=== PATIENT | female | born 1995 | race Caucasian/White ===

== ENCOUNTER 2019-03-29 08:40 | Outpatient (CLI) | payer MEDICAID, SELFPAY ==
[2019-03-29 08:55] VITALS: PULSE 81; RESP 18; TEMP 36.8
[2019-03-29 09:00] VITALS: BP 147/85; PULSE 101; RESP 18; BMI 33.3
[2019-03-29 09:10] VITALS: BP 134/74
[2019-03-29 09:15] VITALS: BP 134/73; PULSE 81; RESP 18
[2019-03-29 13:57] VITALS: BP 156/90; PULSE 112
== END 2019-03-29 09:15 | disposition home or self-care (01) ==
PROVIDERS: Family Provider Family Medicine; Visit Provider Family Medicine
DX: O26.893 Other specified pregnancy related conditions, third trimester (principal); Z3A.00 Weeks of gestation of pregnancy not specified
CPT/HCPCS: 59025; 83986; 99211

== ENCOUNTER 2019-04-03 14:31 | Outpatient (CLI) | payer MEDICAID, SELFPAY ==
--- NOTE | 2019-04-03 14:45 | US_ITS ---
WS: [id number] OB ultrasound for biophysical profile, 04/03/2019 Clinical Data: HIGH RISK /ELEVATED BLOOD PRESSURE Comparison: OB ultrasound, 11/30/2018. Findings: There is a single intrauterine in the vertex presentation. The heart rate is 133 beat s per minute. The cervix was not well seen. The placenta is anterior and grade 2. There is a normal amount of amniotic fluid measuring 10.8 cm.. The biophysical profile is 8 of 8 with normal scores for breathing, movement, posture and tone and amniotic fluid volume. Measurements of growth and development: BPD 9.41 cm HC 33.82 cm AC 34.57 cm FL 7.38 cm The estimated weight was 3464 g or 7 lbs. 10 oz. The estimated gestational age is 38 weeks 2 days and the NAVNEET is 04/15/2019. US/US OB F/U w BPP wo NST Impression: 1. Single intrauterine in vertex presentation. 2. Biophysical profile 8 of 8. 3. heart rate 133 beats per minute.
== END 2019-04-03 14:32 | disposition home or self-care (01) ==
LOC: RAD 14:32
PROVIDERS: Family Provider Family Medicine; Visit Provider Family Medicine
DX: O09.93 Supervision of high risk pregnancy, unspecified, third trimester (principal)
CPT/HCPCS: 76816; 76819

== ENCOUNTER 2019-04-03 16:00 | Outpatient (CLI) | payer MEDICAID, SELFPAY | END 2019-04-03 16:25 | disposition home or self-care (01) | PROVIDERS: Family Provider Family Medicine; Visit Provider Family Medicine | DX: O16.9 Unspecified maternal hypertension, unspecified trimester (principal); Z3A.00 Weeks of gestation of pregnancy not specified ==

== ENCOUNTER 2019-04-03 16:16 | Outpatient (CLI) | payer MEDICAID, SELFPAY ==
[2019-04-03 16:16] VITALS: RESP 18; TEMP 36.7
[2019-04-03 17:13] VITALS: BMI 33.2
[2019-04-03 18:01] VITALS: RESP 18; TEMP 36.7
== END 2019-04-03 16:17 | disposition home or self-care (01) ==
LOC: OPOB 16:17
PROVIDERS: Family Provider Family Medicine; Visit Provider Family Medicine
DX: O13.9 Gestational [pregnancy-induced] hypertension without significant proteinuria, unspecified trimester (principal); Z3A.00 Weeks of gestation of pregnancy not specified
CPT/HCPCS: 59025; 99211

== ENCOUNTER 2019-04-06 10:25 | Outpatient (CLI) | payer MEDICAID, SELFPAY ==
[2019-04-06 10:51] VITALS: BMI 34.5
[2019-04-06 11:07] VITALS: BP 114/65; PULSE 82
[2019-04-06 11:21] VITALS: BP 117/71; PULSE 67
[2019-04-06 11:28] VITALS: BP 117/71; RESP 18; TEMP 36.7
== END 2019-04-06 11:25 | disposition home or self-care (01) ==
PROVIDERS: Family Provider Family Medicine; PCP Family Medicine; Visit Provider Family Medicine
DX: O13.4 Gestational [pregnancy-induced] hypertension without significant proteinuria, complicating childbirth (principal); Z3A.00 Weeks of gestation of pregnancy not specified
CPT/HCPCS: 59025

== ENCOUNTER 2019-04-10 09:09 | Inpatient (IN) | payer MEDICAID, SELFPAY ==
[2019-04-10] VITALS (68 sets, daily range): BP systolic 0–152; BP diastolic 0–87; PULSE 56–80; RESP 16–20; TEMP 36.6–36.8; O2SAT 96–100; BMI 34.3
[2019-04-10 10:12] LABS: Basophils % 0.5 %; Eosinophils # 0.1 10^3/uL (0.0-0.8); Eosinophils % 0.9 %; Hemoglobin 11.4 g/dL (11.5-15.3); Lymphocytes # 1.7 10^3/uL (0.8-4.8); Lymphocytes % 18.7 %; Mean Corpuscular HGB Conc 32.6 g/dL (30.0-36.0); Mean Corpuscular Hemoglobin 29.2 pg (28.0-34.0); Mean Corpuscular Volume 89.7 fL (81-99); Mean Platelet Volume 13.4 fL (7.4-10.4); Monocytes # 0.5 10^3/uL (0.2-0.9); Monocytes % 5.2 %; Neutrophils # 6.6 10^3/uL (1.8-7.7); Neutrophils % 74.5 %; Nucleated Red Blood Cells % 0 %; Platelet Count 150 10^3/cmm (130-400); Red Cell Distribution Width 13.7 % (12.1-15.1); White Blood Count 8.9 10^3/uL (4.0-10.0)
[2019-04-10 10:28] LABS: Alanine Aminotransferase 9 U/L (0-33); Albumin Level 3.4 g/dL (3.5-5.2); Alkaline Phosphatase 212 IU/L (35-105); Anion Gap 17.6 (5-19); Aspartate Amino Transferase 19 U/L (0-32); Blood Urea Nitrogen 5 mg/dL (6-20); Carbon Dioxide 20 mmol/L (22-29); Chloride 101 mmol/L (98-107); Globulin 3.7 g/dL (1.3-4.6); Glucose 109 mg/dL (74-109); Potassium 3.6 mmol/L (3.5-5.1); Sodium 135 mmol/L (136-145); Total Bilirubin 0.2 mg/dL (0.15-1.2); Total Protein 7.1 g/dL (6.6-8.7); Uric Acid 4.7 mg/dL (2.4-5.7)
--- NOTE | 2019-04-10 10:51 | PC.NURSE ---
anesthesia in room, pt positioned for epidural placement
--- NOTE | 2019-04-10 11:05 | ANES.PREANES ---
Pre-Anesthetic Assessment Pre-Anesthetic Assessment: Height/Weight: Height 1.63 m Weight 90.718 kg Temp Pulse Resp BP Pulse Ox 98.2 F 63 20 H 139/75 100 04/10/19 10:18 04/10/19 11:01 04/10/19 10:18 04/10/19 11:01 04/10/19 10:59 Preop Diagnosis: IUP Proposed Procedure: Labor Lumbar Epidural Was Beta Miya taken within 24 hours: N/A Social: Social History: No alcohol and No tobacco Exam: Pre-Anes Outpt Exam: alert, oriented x 3, clear to auscultation bilaterally and regular rate & rhythm Airway: Submandibular: WNL Cervical ROM: WNL MP: 2 Dentition: Full History/ROS: No significant history except as noted and No significant complaints Pulmonary: Pulmonary: None reported CV/HEM: CV/HEM: HTN (PIH- on PO labetalol) : : None reported Hepatic: Hepatic: None reported GI: GI: GERD Metabolic: Metabolic: None reported Musc/skel: Musc/skel: None reported Neuropsych: Neuropsych: None reported Anesthetic Plan: ASA status: II Anesthesia: Regional (specify below) Other: Epidural Meds/Allergies Current Medications: Current Medications Generic Name Dose Route Start Last Admin Trade Name Freq PRN Reason Stop Dose Admin Lactated Ringer's 2,000 mls @ 999 m ls/hr 04/10/19 09:48 04/10/19 10:10 Lactated Ringers IV 04/10/19 11:48 999 mls/hr .Q2H1M ONE Administration PFSH Anesthesia Female Reproductive History: Date of last menstrual period: 07/10/18 : 3 Data Anesthesia CBC & Chem 7: 04/10/19 09:40 04/10/19 09:40 Other Labs: Laboratory Results - last 48 hr 04/10/19 04/10/19 09:40 09:40 WBC 8.9 RBC 3.90 L Hgb 11.4 L Hct 35.0 L MCV 89.7 MCH 29.2 MCHC 32.6 RDW 13.7 Plt Count 150 MPV 13.4 H Neut % (Auto) 74.5 Lymph % (Auto) 18.7 Lipscomb % (Auto) 5.2 Eos % (Auto) 0.9 Baso % (Auto) 0.5 Neut # (Auto) 6.6 Lymph # (Auto) 1.7 Lipscomb # (Auto) 0.5 Eos # (Auto) 0.1 Baso # (Auto) 0.0 Nucleated RBC % (auto) 0 Nucleated RBCs # 0.0 Sodium 135 L Potassium 3.6 Chloride 101 Carbon Dioxide 20 L Anion Gap 17.6 BUN 5 L Creatinine 0.6 GFR Calculation 125.0 Glucose 109 Uric Acid 4.7 Calcium 9.0 Total Bilirubin 0.2 AST 19 ALT 9 Alkaline Phosphatase 212 H Total Protein 7.1 Albumin 3.4 L Globulin 3.7 Cardiac Studies: No Data to Display Anesthesia Procedures Date of Procedure: 04/10/19 Epidural: Time Out Performed: Yes Consents Signed: Procedure Consent Consent: from patient, risks and benefits reviewed and patient agrees to proceed Lumbar Level: L3-L4 Epidural position: sitting Epidural procedure: sterile prep of area, 1% lidocaine to numb the area (5), 18 g needle, negative for paresthesia passed, neg for paresthesia, test dose given, 1.5% xylocaine 1:200k epi (5), 0.2% Ropivacaine bolus ml (8), placed PCEA (5cc q10min x 3), no systemic response, sterile dressing applied, L.U.D. no apparent complications and 0.2% Ropiavacaine @ mls/hr (11.5) Additional Comments: Called to OB for epidural placement, pt evaluated and assessed for placement and explained procedure. Labs reviewed. Pt agrees to proceed. placed to 5cm in space and tolerated well. Bolused over 7 min and VSS throughout per nursing chart. Last BP 128/77. Pain much improved.
[2019-04-10 11:27] LABS: Add Urine Microscopic? YES; Bilirubin Urine Neg (NEGATIVE); Blood Urine Neg (Negative); Glucose Urine UA Norm (Normal); Ketones Urine Negative (Negative); Leukocyte Esterase Urine Negative (Negative); Nitrate Urine Negative (Negative); Protein Urine Neg (Negative); Urine Appearance Clear (CLEAR); Urine Color Yellow (Yellow); Urobilinogen Urine Norm (Negative)
[2019-04-10 11:33] LABS: Urine Creatinine 230 mg/dL (28-217); Urine Protein Random 19 mg/dL
[2019-04-10 11:35] LABS: UPRO/UCREAT Ratio 0.08 mg/mg CR
[2019-04-10 12:02] LABS: Add Urine Culture? No; Bacteria Urine TRACE
--- NOTE | 2019-04-10 12:29 | PM.OBGYHP ---
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 She presents at 39-1/7 weeks gestation with complaint of contractions onset early this morning and increasing in frequency and intensity. She is a patient of Dr. Luna's. Her course has been complicated by gestational hypertension diagnosed at 36 weeks gestation. For the past 2 weeks she has been taking labetalol 50 mg twice daily and has had work-up for preeclampsia which was negative. She has been asymptomatic with the exception of a headache which she had over the weekend which was associated with elevated blood pressure but did respond to acetaminophen. She is currently asymptomatic with the exception of the contractions. She has no other complications during this . There is been no bleeding and no leakage of fluid. Since she has a history of gestational hypertension with her first , she is been on the recommended aspirin since 12 weeks gestation. Present Details : 3 Para: 1 Date of Last Menstrual Period: 07/10/18 Calculated Date of Delivery: 04/16/19 Gestational Age Based on Last Menstrual Period: 39 Labs Rubella: Immune RPR: Negative GBS: Negative Other Lab Information: Antibody screen: Negative HIV: Negative Gonorrhea/Chlamydia: Negative/negative Pap: Normal Quad screen: Declined Urine culture: Mixed [id number] gram-positive bindu 1 hour GTT: 95 Group B strep screen: Negative Review of Systems Const: Denies: fever Eyes: Denies: change in vision, blurry vision or blind spots Card: Denies: chest pain or edema Resp: Denies: shortness of breath or productive cough GI: Denies: abdominal pain, nausea or vomiting : Reports: pelvic pain (Consistent with contractions); Denies: vaginal bleeding Musc: Denies: extremity swelling Skin/Breast: Denies: rash Neuro: Denies: headache, numbness in extremities, weakness in extremities or slurred speech Psych: Denies: anxiety or depression Medications/Allergies Home Medications Medication Instructions Recorded Confirmed Last Taken Type labetalol 50 mg PO BID 04/10/19 04/10/19 04/10/19 History 0700 vit no.[id number] 1 tab PO DAILY 04/10/19 04/10/19 04/09/19 History [ Vitamin] 1900 Allergies Allergy/AdvReac Type Severity Reaction Status Date / Time No Known Allergies Allergy Verified 04/10/19 10:36 [facility] 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 Date GA/Weeks Outcome Route Wt Inf Gender Labor Lgth Comp. Anesthesia Location 03/22/14 6 spontaneous 11/20/16 39 live - full term Vaginal 3.274 kg Female Delivery Date: 03/22/14 On 04/10/19 @ 13:04 Gabriela Francisco No complications Delivery Date: 11/20/16 On 04/10/19 @ 13:06 Gabriela Francisco Gestational hypertension, hemorrhage Vitals/I&O/Wt Last Vital Signs Temp 98.2 F 04/10/19 10:18 Pulse 63 04/10/19 12:25 Resp 20 H 04/10/19 10:18 BP 139/83 04/10/19 12:25 Pulse Ox 99 04/10/19 11:49 Weight last 48 hrs Weight 90.718 kg Physical Exam Narrative: EXAM NARRATIVE: For complete physical examination please refer to her record. heart tones are category 1 with normal baseline, moderate variability, no decelerations, and there are adequate accelerations. Contractions are every 5 to 6 minutes and moderate. Const: COMMON NORMALS: no apparent distress, oriented x3, no limitations, healthy appearing, alert and well nourished GENERAL APPEARANCE: cooperative, comfortable and well developed ORIENTATION/CONSCIOUSNESS: Yes awake HENMT: COMMON NORMALS: normocephalic HEAD & SCALP: normocephalic Eye: COMMON NORMALS: PERRL and no scleral icterus GENERAL EYE: normal appearance of both eyes PUPIL: Yes PERRL Neck/C-Spine: COMMON NORMALS: no JVD Resp: COMMON NORMALS: normal respiratory effort and clear to auscultation bilaterally AUSCULTATION: clear to auscultation bilaterally Cardio: COMMON NORMALS: no JVD, regular rate, regular rhythm, no murmurs and peripheral pulses 2+ throughout RATE: regular rate RHYTHM: regular rhythm PERIPHERAL PULSES: pulses 2+ throughout : MANUAL OB EXAM: dilated 8 cm (8 to 9 cm), effaced fully, station -2 and other (Vertex) OTHER: Bag of water palpable Extremity: COMMON NORMALS: normal to inspection, no clubbing, cyanosis or edema and no pedal edema Neuro: COMMON NORMALS: oriented x3 SENSORIUM/ORIENTATION: Yes alert OTHER: No clonus or hyperactive reflexes Psych: COMMON NORMALS: mental status grossly normal, thought process normal, cooperative, affect normal and speech normal SPEECH: Yes normal speech THOUGHT PROCESS: normal thought process Skin: COMMON NORMALS: no rashes or lesions noted and no jaundice GENERAL SKIN EXAM: no rashes or lesions noted Urinary Catheter Management^: Burris: Cath Placed During This Visit: no Data : 04/10/19 09:40 04/10/19 09:40 A&P Assessment and plan (1) 39 weeks gestation of : Status: Acute Code(s): Z3A.39 - 39 weeks gestation of (2) Spontaneous onset of labor: Routine labor and delivery admit orders. Patient is desirous of an epidural, therefore preparations were made upon her arrival. Note is made that she is already received it and is comfortable. Status: Acute (3) Gestational hypertension affecting third : Preeclamptic labs were updated and were not suggestive of preeclampsia. She remains asymptomatic. Status: Acute Code(s): O13.9 - Gestational [-induced] hypertension without significant proteinuria, unspecified trimester Attestations Medical Necessity Statement*: As patient has not yet delivered and has a complication which can continue to manifest itself and even worsen , she will need continued hospitalization as an inpatient. Coding Level of Care Code Acute Client Success Specialist for Chg Fwd Exam Problem Focused Diagnoses 39 weeks gestation of Z3A.39 Spontaneous onset of labor Gestational hypertension affecting third O13.9
[2019-04-10] MEDS: oxytocin 30 UNIT/500 ML BAG 600 UNIT IV (13:54)
[2019-04-10] MEDS: lidocaine 2% INJ 20 mL INJECTION (13:56)
--- NOTE | 2019-04-10 14:06 | P.PCNOB_ITS ---
Delivery Note: Date of delivery: 04/10/19 Pre-delivery diagnoses: 39-week gross intrauterine Spontaneous onset of labor Gestational hypertension, asymptomatic, preeclamptic evaluation negative Epidural anesthesia Amniotomy productive of a moderate amount of clear fluid Post-delivery diagnoses: 39-week spontaneous vaginal delivery of a viable male Nuchal cord x1 First-degree periurethral laceration status post repair Anesthesia: epidural Delivering Physician: Dr. Francisco Estimated blood loss (mL): 150.0 Pre-Delivery Course: When patient arrived in the labor room this morning she was 6 cm dilated, 75% effaced and -2 to -3 station. She was hope every 5 to 6 minutes with increasing frequency and intensity. A preeclamptic laboratory evaluation was done and revealed no abnormalities relative to preeclampsia. She was asymptomatic. She did not have any blood pressures above 160 systolic or 110 diastolic. She opted for an epidural shortly after arrival, received it and became comfortable. At 1309 she underwent amniotomy which was productive of a moderate amount of clear fluid. At that time she had only an anterior rim of cervix remaining. She was then found to be completely dilated at 1328. Delivery: We had her labor down from 1328 until 1339 at which time we began the active portion of the second stage of her labor. After just 8 minutes and 3 contractions worth of pushes she delivered a viable male infant at 1347. Head was straight OA. There was a nuchal cord x1 which was loose and easily manually reduced on the perineum. Bulb suctioning was done upon delivery of the baby's head and of his body. Baby was placed on maternal abdomen while cord was clamped by myself without delay, cut by the father the baby and cord blood obtained. Baby remained on mother's abdomen for a while and was then taken to the warmer for routine resuscitative measures. Gentle traction was placed on the cord, and Pitocin was given in routine intravenous doses. The placenta was delivered at 1352 and appeared intact. The perineum and cervix were inspected, and a first-degree periurethral laceration was repaired with 2-0 chromic running stitch after a 1 mL lidocaine local anesthetic. Fundus was firm. Mother and baby were stable. Post-Delivery Status: Shortly after delivery patient had an increase in her bleeding.. Fundal massage revealed a firm uterus, but there was passage of some small to moderate size clots, and the uterus was then even more firm. Patient will be given 800 mcg of Cytotec rectally. A&P Assessment and plan (1) 39 weeks gestation of : Status: Acute Code(s): Z3A.39 - 39 weeks gestation of (2) Spontaneous onset of labor: Status: Acute (3) Gestational hypertension affecting third : Status: Acute Code(s): O13.9 - Gestational [-induced] hypertension without significant proteinuria, unspecified trimester (4) Normal vaginal delivery of third : Status: Acute Code(s): O80 - Encounter for full-term uncomplicated delivery (5) Rupture of membranes with clear amniotic fluid: Status: Acute (6) Periurethral laceration, delivered, current hospitalization: Status: Acute Code(s): O71.82 - Other specified trauma to perineum and vulva Coding Level of Care Code Acute Commercial Insurance Underwriter for Chg Fwd Diagnoses 39 weeks gestation of Z3A.39 Spontaneous onset of labor Gestational hypertension affecting third O13.9 Rupture of membranes with clear amniotic fluid Normal vaginal delivery of third O80 Periurethral laceration, delivered, current hospitalization O71.82
[2019-04-10] MEDS: miSOPROStol 200 mcg Tablet 800 MCG PR (14:30)
[2019-04-10] MEDS: benzocaine-menthol 78 gm Canister 1 SPRAY TOPICAL (16:15)
[2019-04-10] MEDS: docusate sodium 100 mg Capsule PO (16:15)
[2019-04-10 17:02] LABS: Basophils % 0.2 %; Eosinophils % 0.1 %; Hematocrit 33.5 % (37.0-47.0); Hemoglobin 11.1 g/dL (11.5-15.3); Lymphocytes # 1.7 10^3/uL (0.8-4.8); Lymphocytes % 12.7 %; Mean Corpuscular HGB Conc 33.1 g/dL (30.0-36.0); Mean Corpuscular Hemoglobin 30.7 pg (28.0-34.0); Mean Corpuscular Volume 92.8 fL (81-99); Mean Platelet Volume 13.2 fL (7.4-10.4); Monocytes # 0.5 10^3/uL (0.2-0.9); Monocytes % 3.4 %; Neutrophils # 11.4 10^3/uL (1.8-7.7); Neutrophils % 83.2 %; Nucleated Red Blood Cells % 0 %; Platelet Count 157 10^3/cmm (130-400); Red Blood Count 3.61 10^6/uL (4.1-5.3); Red Cell Distribution Width 13.7 % (12.1-15.1); White Blood Count 13.6 10^3/uL (4.0-10.0)
[2019-04-11 02:32] LABS: Hematocrit 31.1 % (37.0-47.0); Hemoglobin 10.2 g/dL (11.5-15.3); Mean Corpuscular HGB Conc 32.8 g/dL (30.0-36.0); Mean Corpuscular Hemoglobin 29.5 pg (28.0-34.0); Mean Corpuscular Volume 89.9 fL (81-99); Mean Platelet Volume 13.6 fL (7.4-10.4); Platelet Count 138 10^3/cmm (130-400); Red Blood Count 3.46 10^6/uL (4.1-5.3); Red Cell Distribution Width 13.6 % (12.1-15.1); White Blood Count 10.4 10^3/uL (4.0-10.0)
[2019-04-11 06:00] VITALS: BP 119/69; PULSE 68; RESP 16; TEMP 36.6
--- NOTE | 2019-04-11 07:14 | PM.PN ---
Subjective Subjective: Interval history: The patient is doing well at this time. She is ambulating, voiding, passing gas and tolerating food by mouth. Her bleeding is decreasing well. She has no concerns. Vitals/I&O/Wt Last Vital Signs Temp 97.8 F 04/11/19 06:00 Pulse 68 04/11/19 06:00 Resp 16 04/11/19 06:00 BP 119/69 04/11/19 06:00 Pulse Ox 96 04/10/19 18:05 04/10/19 04/11/19 04/11/19 22:59 06:59 14:59 Intake Total 510.417 / 2395.517 Output Total 300 / 650 500 / 1150 Balance 210.417 / 1745.517 -500 / 1245.517 Weight last 48 hrs Weight 90.718 kg Physical Exam Narrative: EXAM NARRATIVE: General: Alert and oriented x3 Cardiac: Regular rate and rhythm without murmurs Lungs: Clear to auscultation bilaterally without wheezes, crackles or rhonchi Abdomen: Soft, nontender, uterus is firm and 2 cm below the umbilicus Extremities: Trace edema in the bilateral lower extremities Urinary Catheter Management^: Burris: Cath Placed During This Visit: no Data : 04/11/19 02:08 04/10/19 09:40 A&P Additional A&P Information Lashae is a 24-year-old G2 now P2 status post spontaneous vaginal delivery at 39.1 weeks gestation. Her was complicated by gestational hypertension. The patient is doing very well at this time. Her blood pressures have improved well. She is ambulating, voiding, passing gas and tolerating food by mouth. Depending on her course today, she may be able to be discharged home this evening. Attestations Medical Necessity Statement*: The patient is here for routine intrapartum and management of labor and delivery. She will be here for greater than 2 midnights. Coding Level of Care Code Acute Supervisor [employer] Cle[employer] Storage for Fer Whitlock
[2019-04-11] MEDS: prenatal vitamin Capsule 1 CAP PO (09:38)
[2019-04-11] MEDS: docusate sodium 100 mg Capsule PO (09:39)
[2019-04-11 10:30] VITALS: BP 121/76; PULSE 64; RESP 16; TEMP 36.8; O2SAT 98
[2019-04-11 17:30] VITALS: BP 131/85; PULSE 84; RESP 16; TEMP 36.8; O2SAT 97
--- NOTE | 2019-04-21 15:58 | P.DS_ITS ---
Discharge Providers Date of Admission: 04/10/19 09:09 Date of Discharge: Date of Discharge: April 21, 2019 Attending Provider at Admission: Nile Luna MD Attending Provider at Discharge: Nile Luna MD Primary Care Provider: Nile Luna MD Diagnoses at Discharge Discharge Diagnosis (1) 39 weeks gestation of : Status: Acute (2) Spontaneous onset of labor: Status: Acute (3) Gestational hypertension affecting third : Status: Acute Reason for Visit Reason for Visit: Reason For Visit: Abdominal pain Hospital Course Hospital Course: The patient was admitted for spontaneous labor. When the patient arrived in the labor room she was 6 cm dilated, 75% effaced and -2 to -3 station. She was hope every 5 to 6 minutes with increasing frequency and intensity. A preeclamptic laboratory evaluation was done and revealed no abnormalities relative to preeclampsia. She was asymptomatic. She did not have any blood pressures above 160 systolic or 110 diastolic. She opted for an epidural shortly after arrival, received it and became comfortable. At 1309 she underwent amniotomy which was productive of a moderate amount of clear fluid. At that time she had only an anterior rim of cervix remaining. She was then found to be completely dilated at 1328. Delivery: Dr. Francisco had her labor down from 1328 until 1339 at which time she began the active portion of the second stage of her labor. After just 8 minutes and 3 contractions worth of pushes she delivered a viable male infant at 1347. Head was straight OA. There was a nuchal cord x1 which was loose and easily manually reduced on the perineum. Bulb suctioning was done upon delivery of the baby's head and of his body. Baby was placed on maternal abdomen while cord was clamped by myself without delay, cut by the father the baby and cord blood obtained. Baby remained on mother's abdomen for a while and was then taken to the warmer for routine resuscitative measures. Gentle traction was placed on the cord, and Pitocin was given in routine intravenous doses. The placenta was delivered at 1352 and appeared intact. The perineum and cervix were inspected, and a first-degree periurethral laceration was repaired with 2-0 chromic running stitch after a 1 mL lidocaine local anesthetic. Fundus was firm. Mother and baby were stable. Post-Delivery Status: Shortly after delivery patient had an increase in her bleeding. Fundal massage revealed a firm uterus, but there was passage of some small to moderate size clots, and the uterus was then even more firm. Patient will be given 800 mcg of Cytotec rectally. Postdelivery course: The patient has done very well and her bleeding has slowed down well. She is ambulating, voiding, passing gas and tolerating food by mouth. Her pain is well controlled. Overall she is doing very well. She request to be discharged home. We will follow-up with her as an outpatient. All questions were answered. Routine instructions were given. Physical Exam Narrative: EXAM NARRATIVE: General: Alert and oriented x3 Cardiac: Regular rate and rhythm without murmurs Lungs: Clear to auscultation bilaterally without wheezes, crackles or rhonchi Abdomen: Soft, nontender, fundus is firm and 3 cm below the umbilicus Extremities: 2+ pitting edema in the bilateral lower extremities. Urinary Catheter Management^: Burris: Cath Placed During This Visit: no Discharge Data Vitals: Last Vital Signs Temp 98.3 F 04/11/19 17:30 Pulse 84 04/11/19 17:30 Resp 16 04/11/19 17:30 BP 131/85 04/11/19 17:30 Pulse Ox 97 04/11/19 17:30 Discharge Plan Discharge Patient Disposition: Home, Self-Care Condition: Stable Prescriptions: New ibuprofen 800 mg Tablet 800 mg PO TID Qty: 60 RF: 0 ferrous sulfate 325 mg (65 mg iron) tablet 325 mg PO BID Qty: 30 RF: 0 Continued Vitamin 27 mg iron- 800 mcg Tablet 1 tab PO DAILY RF: 0 Discontinued labetalol 100 mg Tablet 50 mg PO BID RF: 0 Discharge Orders: Discharge Order (Routine); Ordered 04/11/19 Ordered By: Nile Luna Referrals: Nile Luna MD [Primary Care Provider] - 05/18/19 9:30 am (May 18, 2019 ) Discharge Diet: Usual diet Discharge Activity: Resume usual activity Patient Instructions: Labetalol (By mouth), Vitamins (By mouth), Vaginal Delivery (DC), OB Discharge Report, OB Food/Drug Interaction Guide, OB Care at Home, OB Home Care, OB Proud Parent Packet, OB Vaginal Deliveries Activity Restrictions/Additional Instructions: Nothing per vagina for 6 weeks. No baths for 6 weeks. Showers okay. 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
== END 2019-04-11 17:30 | disposition home or self-care (01) | DRG 807 ==
LOC: OPOB 09:26 → OBGYN 09:27 → OPOB 11:48
PROVIDERS: Family Medicine; Admitting Provider Family Medicine; Family Provider Family Medicine; PCP Family Medicine; Visit Provider Family Medicine
DX: O13.4 Gestational [pregnancy-induced] hypertension without significant proteinuria, complicating childbirth (principal); Z37.0 Single live birth; O69.81X0 Labor and delivery complicated by cord around neck, without compression, not applicable or unspecified; Z3A.39 39 weeks gestation of pregnancy; O71.82 Other specified trauma to perineum and vulva; O70.0 First degree perineal laceration during delivery
CPT/HCPCS: 12345; 36415; 51702; 59409; 80053; 81003; 82570; 84156; 84550; 85025; 85027; 99211; J2001; J2795

== ENCOUNTER → 2020-01-28 10:33 | Outpatient (BNVA) | payer MEDICAID, SELFPAY | PROVIDERS: Family Provider Family Medicine; PCP Family Medicine | DX: Z11.59 Encounter for screening for other viral diseases (principal) | CPT/HCPCS: 87635 ==

== ENCOUNTER 2021-04-21 15:52 | Emergency (ER) | payer BC, MEDICAID, SELFPAY ==
[2021-04-21 17:36] VITALS: BP 123/86; PULSE 68; RESP 18; TEMP 36.7; O2SAT 100; BMI 32.8
--- NOTE | 2021-04-21 20:59 | W.ED.HA ---
HPI - Headache General: Chief Complaint: Headache Stated Complaint: face an arm numb Time Seen by Provider: 04/21/21 20:53 History of Present Illness: Patient is a 26-year-old female that is currently 7 weeks comes to the ED with a headache and neuro symptoms. This morning patient woke up and had mild headache that she rates currently at about a 5 out of 10. The headache is located behind right eye. She has never had a headache this before. At around 3 PM today she developed some left-sided facial numbness and left arm numbness. Symptoms resolved upon arrival here to the ED. Denies any complaints for current and says she just saw her OB doctor this morning. Here in the ED she says she does not need anything for headache and says it is mild and manageable. She has no more left arm or left-sided facial numbness here in the ED. denies any nausea/vomiting, fever, chest pain, shortness of breath, vision changes, photophobia. Associated symptoms: Deny chest pain, fever(s), nausea, rash or vomiting Review of Systems Const: Denies: fever(s), chills or fatigue Eyes: Denies: change in vision, photophobia or eye discomfort ENMT: Denies: throat pain, odynophagia, nasal discharge or nasal congestion Card: Denies: chest pain, palpitations, edema, swelling of feet/ankles, dyspnea on exertion or orthopnea Resp: Denies: dyspnea, productive cough or non-productive cough GI: Denies: abdominal pain, nausea, vomiting, diarrhea, constipation or hematochezia : Denies: flank pain, dysuria or hematuria Musc: Denies: neck pain, back pain or extremity swelling Skin/Breast: Denies: rash or new lesions Neuro: Reports: headache(s) and numbness in extremities (left arm and left side of face); Denies: weakness in extremities PFS ED PFSH: Surgical History (Updated 04/22/21 @ 03:07 by LAYNE Sifuentes) No pertinent past surgical history Family History Father Diabetes Heart failure Social History Smoking and tobacco status: never smoked Alcohol intake: never Caregiver/support person: Yes Lives independently: Yes Household members: spouse and children Marital status: Number of children: 1 Number of grandchildren: 0 Highest education level completed: High School Graduate Female Reproductive History: Date of last menstrual period: 03/03/21 Physical Exam Const: COMMON NORMALS: no acute distress, patient oriented x3, healthy appearing and alert HENMT: COMMON NORMALS: normocephalic HEAD & SCALP: normocephalic MOUTH: Normal oral and palatal mucosa present THROAT: posterior oropharynx normal and uvula midline Eye: COMMON NORMALS: Equal, round and reactive pupils present, EOMs intact bilaterally and conjunctivae normal CONJUNCTIVA: Yes conjunctivae normal PUPIL: Yes Equal, round and reactive pupils present Neck/C-Spine: COMMON NORMALS: supple GENERAL: Yes normal visual inspection Resp: COMMON NORMALS: normal respiratory effort, No retractions, No use of accessory muscles and clear to auscultation bilaterally AUSCULTATION: clear to auscultation bilaterally Cardio: COMMON NORMALS: regular rate, regular rhythm, S1 normal heart sound present, S2 normal heart sound present, No gallops present (Cardio), No clicks present (Cardio), No murmurs present (Cardio) and Peripheral pulses 2+ throughout RATE: regular rate RHYTHM: regular rhythm HEART SOUNDS: S1 normal heart sound present and S2 normal heart sound present PERIPHERAL PULSES: Peripheral pulses 2+ throughout GI: COMMON NORMALS: Normal to inspection, nondistended, normoactive bowel sounds present, Soft to palpation, non-tender and no masses PALPATION: Yes Soft to palpation : COMMON NORMALS: Yes no CVA tenderness BLADDER/KIDNEY EXAM: Yes no CVA tenderness Back/Pelvis: COMMON NORMALS: no CVA tenderness Extremity: COMMON NORMALS: normal to inspection and no pedal edema Neuro: COMMON NORMALS: patient oriented x3, CN's II-XII intact bilaterally, moves all extremities, no focal motor deficits and no sensory deficits noted SENSORIUM/ORIENTATION: Yes alert SENSORY EXAM: Yes extremities (intact) MOTOR EXAM: 5/5 motor strength present throughout Skin: GENERAL SKIN EXAM: dry skin Course Vital Signs: Vital signs: Vital Signs Temperature 98.6 F 04/21/21 21:58 Pulse Rate 70 04/21/21 21:58 Respiratory Rate 18 04/21/21 21:58 Blood Pressure 133/85 04/21/21 21:58 Pulse Oximetry 100 04/21/21 21:58 MDM - Headache Medical Decision Making Patient is a 26-year-old female who comes to the ED headache and neuro symptoms. Patient says she woke up with a headache today and then later in the day she developed a little bit of left facial numbness along with left arm numbness. Symptoms resolved before she came to the ED. Here in the ED she reports just having a mild headache and no other neurological symptoms. Vitals are stable. Physical exam including neuro exam are benign. CT of head shows no acute intracranial findings. Patient was diagnosed with a headache and discharged home. She was told to follow-up with her PCP in the next 5 to 7 days for reevaluation. Return to ED precautions given. Patient understood and agreed with plan. Lab Data Radiology Impressions Head CT 04/21/21 21:06 IMPRESSION: 1. No acute intracranial abnormality. 2. Multifocal sinusitis. Discharge Plan Discharge Patient Disposition: Home Clinical Impression: Headache Qualifiers: Headache type: unspecified Headache chronicity pattern: acute headache Intractability: not intractable Qualified Code(s): R51.9 - Headache, unspecified Condition: Stable Prescriptions: [place] 0RF Discharge Orders: Discharge ED (Routine); Ordered 04/21/21 Ordered By: Nile Osorio Referrals: Nile Luna MD [Primary Care Provider] - Discharge Diet: Regular Discharge Activity: Increase activity as tolerated Patient Instructions: Headache Activity Restrictions/Additional Instructions: Follow-up with medical provider as directed in 7 to 10 days for reevaluation. Take [id number] Tylenol for headache relief. Return to the ER or your medical provider if condition worsens. Please read and understand discharge instructions. Thank you for choosing [facility] for your healthcare needs today. Please realize this is an emergency room and that we are providing you with a medical screening exam and this may not be complete and all inclusive of all the testing and or work up that you may need to determine your ailment or severity of your illness. It is very important that you follow up as instructed or that you return to the Emergency Department should you have concerns or if your condition changes or worsens in any way. Coding Level of Care Code ED Assistant Federal Public Defender for Fer Whitlock Exam Comprehensive
--- NOTE | 2021-04-21 21:06 | CTR_ITS ---
PROCEDURE INFORMATION: Exam: CT Head Without Contrast Exam date and time: 04/21/2021 9:06 PM Age: 26 years old Clinical indication: Pain; Headache; Additional info: Headache, neuro symptoms-numbness lft face and lft arm TECHNIQUE: Imaging protocol: Computed tomography of the head without contrast. Radiation optimization: All CT scans at this facility use at least one of these dose optimization techniques: automated exposure control; mA and/or kV adjustment per patient size (includes targeted exams where dose is matched to clinical indication); or iterative reconstruction. COMPARISON: No relevant prior studies available. RADIATION DOSE METRICS: Total DLP (mGy-cm): 807.58 FINDINGS: Brain: Normal. No hemorrhage. Unremarkable white matter. No mass effect. Cerebral ventricles: No ventriculomegaly. Paranasal sinuses: Mucosal thickening of the ethmoid sinuses and left sphenoid sinus. Mastoid air cells: Visualized mastoid air cells are well aerated. Bones/joints: Unremarkable. No acute fracture. Soft tissues: Unremarkable. CT/CT head wo con* [id number] IMPRESSION: 1. No acute intracranial abnormality. 2. Multifocal sinusitis.
--- NOTE | 2021-04-21 21:08 | PC.NURSE ---
patient reports vision changes at around 1415 today while at the vet then states numbness that started in left arm then went to tongue and face then a headache started behind right eye. states all numbness has resolved and only the headache remains. Reports 7 weeks .
[2021-04-21 21:58] VITALS: BP 133/85; PULSE 70; RESP 18; TEMP 37; O2SAT 100
== END 2021-04-21 22:00 | disposition home or self-care (01) ==
PROVIDERS: Emergency Provider Physician Assistant; PCP Family Medicine
DX: R51.9 Headache, unspecified (principal)
CPT/HCPCS: 70450; 99283

== ENCOUNTER → 2021-08-22 11:48 | Outpatient (BNVA) | payer BC, MEDICAID, SELFPAY | PROVIDERS: PCP Family Medicine; Visit Provider Family Medicine | DX: O09.90 Supervision of high risk pregnancy, unspecified, unspecified trimester (principal); Z3A.00 Weeks of gestation of pregnancy not specified | CPT/HCPCS: 80053; 82950 ==

== ENCOUNTER → 2021-09-23 14:01 | Outpatient (BNVA) | payer BC, MEDICAID, SELFPAY | PROVIDERS: PCP Family Medicine; Visit Provider Family Medicine | DX: E87.6 Hypokalemia (principal) | CPT/HCPCS: 83735; 84132; 85025 ==

== ENCOUNTER → 2021-11-10 09:48 | Outpatient (BNVA) | payer BC, MEDICAID, SELFPAY | PROVIDERS: PCP Family Medicine; Visit Provider Family Medicine | DX: O09.93 Supervision of high risk pregnancy, unspecified, third trimester (principal); Z3A.00 Weeks of gestation of pregnancy not specified | CPT/HCPCS: 87081 ==

== ENCOUNTER 2021-11-28 00:57 | Inpatient (IN) | payer BC, MEDICAID, SELFPAY ==
[2021-11-27] VITALS (34 sets, daily range): BP systolic 107–173; BP diastolic 53–85; PULSE 57–82; TEMP 36.6; BMI 33.6
[2021-11-27 15:03] LABS: Basophils # 0.1 10^3/uL (0.0-0.1); Basophils % 0.4 %; Eosinophils # 0.1 10^3/uL (0.0-0.8); Eosinophils % 0.8 %; Hematocrit 33.7 % (37.0-47.0); Lymphocytes # 2.4 10^3/uL (0.8-4.8); Lymphocytes % 20.2 %; Mean Corpuscular HGB Conc 32.6 g/dL (30.0-36.0); Mean Corpuscular Hemoglobin 31.3 pg (28.0-34.0); Mean Corpuscular Volume 95.7 fl (81-99); Monocytes # 0.8 10^3/uL (0.2-0.9); Monocytes % 6.6 %; Neutrophils # 8.43 10^3/uL (1.8-7.7); Neutrophils % 71.4 %; Nucleated Red Blood Cells % 0 %; Platelet Count 154 10^3/cmm (130-400); Red Blood Count 3.52 10^6/uL (4.1-5.3); Red Cell Distribution Width 14.2 % (12.1-15.1); White Blood Count 11.8 10^3/uL (4.0-10.0)
[2021-11-27] MEDS: dextrose 5%-lactated ringers 1,000 ML 125 ML IV (15:16)
[2021-11-27] MEDS: oxytocin 30 UNIT/500 ML BAG IV (15:17)
[2021-11-27 15:22] LABS: Mean Platelet Volume 13.4 fL (7.4-10.4); Slide Review Slide Review Perform
--- NOTE | 2021-11-27 16:10 | PM.HP ---
Providers/Chief Complaint Primary Care Provider: Nile Luna MD Chief Complaint: IOL History of Present Illness Ashly Mcqueen is a 26 year old @ 38.3 weeks by LMP c/w 8 wk US. Preg c/b h/o severe preeclampsia, h/o hemorrhage, borderline intrauterine growth restriction with borderline oligohydramnios. The patient presents to labor delivery triage for a scheduled induction of labor per recommendations of perinatology. The patient has had borderline PALOMA readings as low as 7.5. Growth has been anywhere from the 4th to the 7th percentile over the last couple of weeks at perinatology. Because of these concerns, perinatology felt that it would be best to deliver in the 38th week gestation. The patient feels well at this time. She denies any chest pains, shortness of breath, nausea, vomiting, diarrhea, constipation, dysuria, fever, leakage fluid, vaginal bleeding. The patient would like to have a tubal ligation and signed paperwork for a tubal ligation on 08/22/2021. Medications/Allergies Home Medications Medication Instructions Recorded Confirmed Last Taken Type prenat.vits,eren,ufp-xqre-yxzvi 1 tab PO DAILY 11/10/21 11/26/21 Unknown History Allergies Allergy/AdvReac Type Severity Reaction Status Date / Time No Known Allergies Allergy Verified 01/28/20 09:27 PFSH Acute PFSH: Surgical History No pertinent past surgical history Family History Father Diabetes Heart failure Social History Smoking and tobacco status: former smoker Quit status (tobacco): has quit using tobacco Year quit tobacco: 2019 Alcohol intake: never Caregiver/support person: Yes Lives independently: Yes Household members: spouse and children Marital status: Number of children: 2 Number of grandchildren: 0 Highest education level completed: High School Graduate Female Reproductive History: Date of last menstrual period: 03/03/21 : 4 Vitals/I&O/Wt Last Vital Signs Pulse 64 11/27/21 15:54 BP 129/85 11/27/21 15:54 O2 Del Method 11/27/21 14:43 09/11/1011/27/21 11/27/21 06:59 14:59 22:59 Intake Total 0.383 / 0.383 Balance 0.383 / 0.383 Weight last 48 hrs Weight 196 lb Physical Exam Narrative: General: Alert and oriented x3 Eyes: Pupils equal round and reactive to light and accommodation Mouth: Mucous membranes moist, pharynx non-erythematous Cardiac: Regular rate and rhythm without murmurs Lungs: Clear to auscultation bilaterally without wheezes, crackles or rhonchi Abdomen: Soft, non-tender, fundus consistent with gestational age Extremities: Trace edema in the bilateral lower extremities Data : 11/27/21 14:25 A&P Assessment and plan (1) Supervision of high risk , unspecified, third trimester: Status: Acute Plan The patient is doing well at this time. Mid 130s with moderate variability and good accelerations with a category 1 tracing. The patient is being started on IV Pitocin. Contractions are currently every 3 to 5 minutes. She was 3 to 4 cm upon admission. She is GBS negative. We will proceed with induction of labor as scheduled. All questions were answered. The patient and her are in agreement with current plan of care. Attestations Medical Necessity Statement*: The patient will be here for greater than 2 midnights due to routine intrapartum and management of labor and delivery. Coding Level of Care Code Acute Donor Services Coordinator for Fer Whitlock Diagnoses Supervision of high risk , unspecified, third trimester O09.93
--- NOTE | 2021-11-27 18:20 | ANES.PREANE2 ---
Pre-Anesthetic Assessment Height/Weight: Height 1.63 m Weight 88.904 kg Pulse BP O2 Del Method 58 L 117/71 11/27/21 18:16 11/27/21 18:16 11/27/21 16:06 Preop Diagnosis: IUP Familial anesthetic complications: Patient states her father had a complication to anesthesia but he has since and they do not know the complication. Patient has had epidurals in the past without any issues. Was Beta Miya taken within 24 hours: N/A Was Clonidine taken within 24 hours: N/A Social No alcohol and No tobacco Exam alert, oriented x 3, clear to auscultation bilaterally and regular rate & rhythm Airway Submandibular: within normal limits Cervical ROM: within normal limits Mallampati: Class III Dentition: full History/ROS No significant history except as noted and No significant complaints Pulmonary None reported CV/HEM None reported None reported Hepatic None reported GI None reported Metabolic None reported Musc/skel None reported Neuropsych None reported Anesthetic Plan ASA status: 2 Anesthesia: Regional (specify below) (Epidural) Risk of > 500 ml blood loss (7ml/kg in children): No Medications/Allergies Home Medications Medication Instructions Recorded Confirmed Last Taken Type prenat.vits,eren,eko-pyth-hppmp 1 tab PO DAILY 11/10/21 11/26/21 Unknown History Allergies Allergy/AdvReac Type Severity Reaction Status Date / Time No Known Allergies Allergy Verified 01/28/20 09:27 Current Medications Generic Name Dose Route Start Last Admin Trade Name Freq PRN Reason Stop Dose Admin Oxytocin 30 unit in 500 mls @ 1 mls/hr 11/27/21 14:45 11/27/21 16:46 Pitocin IV 13 milliunit/min .Q24H GUILLERMO 13 mls/hr Titration Protocol 1 MILLIUNIT/MIN Dextrose/Lactated Ringer's 1,000 mls @ 125 mls/hr 11/27/21 14:45 11/27/21 15:16 Dextrose 5%-Lactated Ringers IV 125 mls/hr .Q8H GUILLERMO Administration PFSH Anesthesia Surgical History No pertinent past surgical history Family History Father Diabetes Heart failure Social History Smoking and tobacco status: former smoker Quit status (tobacco): has quit using tobacco Year quit tobacco: 2019 Alcohol intake: never Caregiver/support person: Yes Lives independently: Yes Household members: spouse and children Marital status: Number of children: 2 Number of grandchildren: 0 Highest education level completed: High School Graduate Female Reproductive History Date of last menstrual period: 03/03/21 : 4 Data Anesthesia : 11/27/21 14:25 Short CBC 11/27/21 Range/Units 14:25 WBC 11.8 H (4.0-10.0) 10^3/uL Hgb 11.0 L (11.5-15.3) g/dL Hct 33.7 L (37.0-47.0) % MCV 95.7 (81-99) fl Plt Count 154 (130-400) 10^3/cmm Neut % (Auto) 71.4 % Neut # (Auto) 8.43 H (1.8-7.7) 10^3/uL Cardiac Studies: No Data to Display
[2021-11-27] MEDS: lactated ringers 1,000 ML 999 ML IV (23:17)
[2021-11-28] VITALS (58 sets, daily range): BP systolic 88–142; BP diastolic 46–85; PULSE 58–92; RESP 15; TEMP 36.6–36.7; O2SAT 99–100
[2021-11-28] MEDS: lactated ringers 1,000 ML 999 ML IV (00:21)
--- NOTE | 2021-11-28 00:49 | ANES.PROC ---
Anesthesia Procedures Procedure/Date: 11/28/21 Epidural: Time Out Performed: Yes Consents Signed: Procedure Consent and NPO Consent Consent: requested by attending/covering physician, from patient, risks and benefits reviewed and patient agrees to proceed Lumbar Level: L3-L4 Epidural position: sitting Epidural procedure: sterile prep of area, 1% lidocaine to numb the area, neg for paresthesia, test dose given (3mL/2mL), 1.5% xylocaine 1:200k epi, 0.2% Ropivacaine bolus ml (5), placed PCEA, no systemic response, sterile dressing applied, L.U.D. no apparent complications and 0.2% Ropiavacaine @ mls/hr (LUCI 6 cm, catheter threaded to 11 cm)
[2021-11-28] MEDS: ondansetron 2 mg/ML SDV 2 mL 4 MG IVP (01:09)
[2021-11-28] MEDS: dextrose 5%-lactated ringers 1,000 ML 125 ML IV (02:59)
[2021-11-28] MEDS: methylergonovine 0.2 mg/mL INJ 1 mL IM (08:31)
[2021-11-28] MEDS: oxytocin 30 UNIT/500 ML BAG 600 UNIT IV (08:32)
[2021-11-28] MEDS: carboprost tromethamine 250 mcg/mL Amp IM (08:48)
[2021-11-28] MEDS: diphenoxylate/atropine Tablet 2 TAB PO (08:50)
--- NOTE | 2021-11-28 09:42 | P.PCNOB_ITS ---
Delivery Note: Date of delivery: November 28, 2021 Pre-delivery diagnoses: 1. Intrauterine at 38.4 weeks gestation 2. Borderline intrauterine growth restriction 3. Borderline oligohydramnios 4. History of severe preeclampsia 5. History of hemorrhage Post-delivery diagnoses: 1. Intrauterine status post spontaneous vaginal delivery at 38.4 weeks gestation 2. Borderline intrauterine growth restriction 3. Borderline oligohydramnios 4. History of severe preeclampsia 5. History of hemorrhage 6. hemorrhage 7. Delivery of healthy female weighing 6 pounds 1 ounce with Apgars of 8 and 8 Estimated blood loss (mL): 250 Findings: 1. Delivery of healthy female weighing 6 pounds 1 ounce with Apgars of 8 and 8 2. Intact placenta with central umbilical cord insertion site 3. hemorrhage with initial 250 mL blood loss followed by 650 mL blood loss. Pre-Delivery Course: Ashly Mcqueen is a 26 year old G4 now P3 status post spontaneous vaginal delivery @ 38.4 weeks by LMP c/w 8 wk US. Preg c/b h/o severe preeclampsia, h/o hemorrhage, borderline intrauterine growth restriction with borderline oligohydramnios. The patient presented to labor delivery triage for a scheduled induction of labor per recommendations of perinatology.? The patient had borderline PALOMA readings as low as 7.5.? Growth had been anywhere from the 4th to the 7th percentile over the last couple of weeks at perinatology.? Because of these concerns, perinatology felt that it would be best to deliver in the 38th week gestation. The patient would like to have a tubal ligation and signed paperwork for a tubal ligation on 08/22/2021.? The patient was started on IV Pitocin on the afternoon of 11/27/2021. The patient was 3 cm at start. She contracted well with this, however had slow change. By the morning of 11/28/2021, she was 5 to 6 cm and received a laboring epidural. The patient continued to make slow change, so AROM was performed at 6:20 AM on 11/28/2021. The patient had clear fluid. The patient then began to make more rapid change and was complete by 7:53 AM on 11/28/2021. Delivery: The patient began pushing at 7:53 AM on 11/28/2021. She pushed well and the infant delivered in the OA position at 8:00 AM. There was a nuchal cord and the infant was delivered through this. The right shoulder was the anterior shoulder and it delivered with ease. The rest of the infant delivered with ease. The 's mouth and nose were bulb suctioned by myself and the infant was placed on the mother's chest where the nurses were waiting to care for him. The cord was clamped by myself after approximately 1 minute and cut by the infant's father. Cord blood was obtained and the cord was then drained of blood. Traction was placed on the umbilical cord and uterine massage was carried out. The placenta delivered at 8:05 AM on 11/28/2021 without complication. The placenta was noted to be intact with a central umbilical cord insertion site and what appeared to be acute bleeding underneath the insertion of the umbilical cord and the outer membrane of the uterus. IV Pitocin was bolused. The cervix was inspected and no lacerations were noted. The vaginal wall was inspected and 2 very small abrasions were noted. These were not bleeding. The patient had heavy bleeding initially and after uterine massage the uterus clamped down well. Unfortunately the patient continued to have heavy bleeding, so TXA was given. Cytotec 800 mcg was also given rectally. The patient continued to have bleeding, so Methergine IM was given. The patient's bleeding persisted with clots so Hemabate was given IM. After these interventions her bleeding began to decrease. Her bleeding is still moderate, so another dose of TXA has been given. Warm blankets are being placed on her to keep her warm and a DIC panel has been sent off. As second IV was placed. Currently the patient's vital signs are stable with blood pressure of 131/76 and pulse of 74 beats a minute. The patient did have an episode of vomiting associated with the Hemabate, otherwise has not had any dizzy symptoms or other significant side effects. A second exam of the cervix was done and no lacerations were noted on reexamination. Currently the patient's bleeding is starting to decrease and we will continue to watch it closely. If needed a second dose of Hemabate will be given. Current estimate blood loss is 900 mL. If her bleeding persists, we may need to give blood transfusion. We will follow labs to see if fresh frozen plasma or other blood products are needed. History History History 3 Term 2 0 Miscarriages/Ectopic 1 Living Children 2 Past Pregnancies Del. Date GA/Weeks Outcome Route Wt Inf Gender Labor Lgth Comp. Anesth esia Location 03/22/14 6 spontaneous 11/20/16 39 live - full term Vaginal 7 lb 3.5 oz Female 11/28/21 38 live - full term Vaginal 6 lb 1 oz Female 16 hemorrhage regional [facility] Delivery Date: 03/22/14 Last Updated by: Gabrilea Francisco MD No complications Delivery Date: 11/20/16 Last Updated by: Gabriela Francisco MD Gestational hypertension, hemorrhage A&P Assessment and plan (1) hemorrhage: Status: Acute (2) Spontaneous vaginal delivery: Status: Acute Coding Level of Care Code Acute Pcb Design Engineer for Chg Fwd Diagnoses hemorrhage O72.1 Spontaneous vaginal delivery O80
[2021-11-28 10:09] LABS: Alanine Aminotransferase 6 U/L (0-33); Albumin Level 2.7 g/dL (3.5-5.2); Alkaline Phosphatase 128 U/L (35-105); Anion Gap 14.8 (5-19); Aspartate Amino Transferase 9 U/L (0-32); Blood Urea Nitrogen 2 mg/dL (6-20); Carbon Dioxide 18 mmol/L (22-29); Chloride 105 mmol/L (98-107); Globulin 2.9 g/dL (1.3-4.6); Glomerular Filtration Rate 196.1 mL/min (90-130); Glucose 72 mg/dL (65-115); Osmolality Calculated 273 mOsm/kg (285-295); Potassium 3.8 mmol/L (3.5-5.1); Sodium 134 mmol/L (136-145); Total Bilirubin 0.3 mg/dL (0.15-1.2); Total Protein 5.6 g/dL (6.6-8.7)
[2021-11-28] MEDS: HYDROcodone-acetaminophen 5-325 mg Tablet PO (10:39)
[2021-11-28] MEDS: benzocaine-menthol 78 gm Canister 1 SPRAY TOPICAL (10:39)
[2021-11-28 10:40] LABS: Fibrinogen 355 mg/dL (174-498); INR 1.02 (0.8-1.2); Partial Thromboplastin Time 26.4 SECONDS (23.9-36.7)
[2021-11-28 10:43] LABS: D Dimer 1.65 ug/mIFEU (0-0.59)
--- NOTE | 2021-11-28 11:00 | PC.NURSE ---
250 ml EBL blood loss, QBL of 420.
[2021-11-28 11:58] LABS: Basophils # 0.1 10^3/uL (0.0-0.1); Basophils % 0.5 %; Eosinophils % 0.4 %; Hematocrit 31.5 % (37.0-47.0); Hemoglobin 10.2 g/dL (11.5-15.3); Lymphocytes % 17.7 %; Mean Corpuscular HGB Conc 32.4 g/dL (30.0-36.0); Mean Corpuscular Hemoglobin 31.1 pg (28.0-34.0); Monocytes # 0.6 10^3/uL (0.2-0.9); Monocytes % 5.6 %; Neutrophils # 8.34 10^3/uL (1.8-7.7); Neutrophils % 75.4 %; Nucleated Red Blood Cells % 0 %; Platelet Count 127 10^3/cmm (130-400); Red Blood Count 3.28 10^6/uL (4.1-5.3); Red Cell Distribution Width 14.2 % (12.1-15.1); White Blood Count 11.1 10^3/uL (4.0-10.0)
[2021-11-28 12:08] LABS: Mean Platelet Volume 14.1 fL (7.4-10.4)
--- NOTE | 2021-11-28 16:58 | PC.NURSE ---
given update on patient status by this RN. Orders received to discontinue pitocin infusion. CHER RN
[2021-11-28 22:26] LABS: Hematocrit 27.9 % (37.0-47.0); Mean Corpuscular HGB Conc 32.3 g/dL (30.0-36.0); Mean Corpuscular Hemoglobin 31.1 pg (28.0-34.0); Mean Corpuscular Volume 96.5 fl (81-99); Mean Platelet Volume 13.6 fL (7.4-10.4); Platelet Count 129 10^3/cmm (130-400); Red Blood Count 2.89 10^6/uL (4.1-5.3); Red Cell Distribution Width 14.2 % (12.1-15.1); White Blood Count 11.6 10^3/uL (4.0-10.0)
[2021-11-28] MEDS: ibuprofen 800 mg tablet PO (22:32)
[2021-11-28] MEDS: ferrous sulfate EC 325 mg Tablet PO (23:11)
[2021-11-29 03:05] VITALS: BP 109/70; PULSE 65; RESP 16; TEMP 36.8
[2021-11-29 04:45] VITALS: BP 116/79; PULSE 72; RESP 16
--- NOTE | 2021-11-29 08:04 | PM.PN ---
Subjective Subjective: The patient is doing well at this time. She is ambulating, voiding, passing gas and tolerating food by mouth. Her bleeding has decreased well. She does not have any symptoms of chest pains, shortness of breath or lightheadedness. Vitals/I&O/Wt Last Vital Signs Temp 98.3 F 11/29/21 03:05 Pulse 72 11/29/21 04:45 Resp 16 11/29/21 04:45 BP 116/79 11/29/21 04:45 Pulse Ox 99 11/28/21 22:41 O2 Del Method 11/28/21 22:41 Weight last 48 hrs Weight 196 lb Physical Exam Narrative: General: Alert and oriented x3 Cardiac: Regular rate and rhythm without murmurs Lungs: Clear to auscultation bilaterally without wheezes, crackles or rhonchi Abdomen: Soft, mild tenderness over uterus. The uterus is firm and 5 cm below the umbilicus. Extremities: Trace edema in the bilateral lower extremities Urinary Catheter Management: Burris: Cath Placed During This Visit: yes Reason for Continuing Indwelling Catheter: Other Urinary Catheter Date of Insertion: 11/28/21 Urinary Catheter Time of Insertion: 01:13 Data : 11/28/21 22:15 11/28/21 09:22 A&P Assessment and plan (1) hemorrhage: The patient had an estimated 950 mL blood loss. She had approximately 600 that was weighed on chucks and 250 mL estimated blood loss at delivery. The patient's bleeding has decreased very well after multiple treatments. The patient had TXA x2, Methergine x1, Hemabate x1, Cytotec 800 mcg, and multiple bags of IV Pitocin. The patient's DIC panel looks good. It was drawn approximately 1 hour after delivery. Her hemoglobin has dropped from 11 to 9 and will likely drop slightly more, but clinically she is very stable. It appears that we will not have to worry about a blood transfusion at this time. Being that the patient had hemorrhage and her first delivery as well as now her third, it would put her at significantly elevated risk for having this again. She is discussing having a tubal done and I would recommend this. Status: Acute (2) Spontaneous vaginal delivery: Currently the patient is doing well . We will continue to watch her today and be sure that she continues to stay stable. We will plan for discharge home tomorrow as long as she is doing well. Status: Acute Attestations Medical Necessity Statement*: The patient will be here for greater than 2 midnights due to management of intrapartum and Labor and Delivery. Coding Level of Care Code Acute Retail Service Technician for Chg Fwd Diagnoses hemorrhage O72.1 Spontaneous vaginal delivery O80
--- NOTE | 2021-11-29 10:42 | ANE.PACU2 ---
Inpatient post-anesthesia follow up: Airway intact: Yes Vital signs: Temperature 98.3 F Pulse Rate 72 Respiratory Rate 16 Blood Pressure 116/79 Pulse Oximetry 99 Oxygen Delivery Me thod Room Air Oxygen Flow Rate Fraction of Inspir ed Oxygen Hydration adequate: Yes Nausea and vomiting: No Pain level: 2 Mental status: Baseline
[2021-11-29 11:00] VITALS: BP 118/76; PULSE 71; RESP 18; TEMP 36.7; O2SAT 99
[2021-11-29] MEDS: docusate sodium 100 mg Capsule PO ×2 (12:03→18:35)
[2021-11-29] MEDS: prenatal vitamin Capsule 1 CAP PO (12:03)
[2021-11-29] MEDS: ibuprofen 800 mg tablet PO ×2 (12:03→18:35)
[2021-11-29] MEDS: ferrous sulfate EC 325 mg Tablet PO ×3 (12:03→23:31)
[2021-11-29 16:40] VITALS: BP 139/85; PULSE 55; RESP 18; TEMP 36.3; O2SAT 99
[2021-11-29 22:51] VITALS: BP 112/50; PULSE 69; RESP 14; TEMP 36.7; O2SAT 99
[2021-11-30 05:19] VITALS: BP 127/64; PULSE 61; RESP 16
[2021-11-30 07:45] VITALS: BP 143/84; PULSE 52; RESP 16; TEMP 36.7
[2021-11-30] MEDS: docusate sodium 100 mg Capsule PO (08:52)
[2021-11-30] MEDS: ferrous sulfate EC 325 mg Tablet PO (08:52)
[2021-11-30] MEDS: ibuprofen 800 mg tablet PO (08:52)
[2021-11-30] MEDS: prenatal vitamin Capsule 1 CAP PO (08:53)
--- NOTE | 2021-11-30 09:50 | PM.DCS ---
Discharge Providers Date of Admission: 11/28/21 00:57 Date of Discharge: November 30, 2021 Attending Provider at Admission: Nile Luna MD Attending Provider at Discharge: Nile Luna MD Primary Care Provider: Nile Luna MD Diagnoses at Discharge Discharge Diagnosis (1) hemorrhage: Status: Resolved (2) Spontaneous vaginal delivery: Status: Resolved Other Information Additional DC diagnoses/information: 1.? Intrauterine status post spontaneous vaginal delivery at 38.4 weeks gestation 2.? Borderline intrauterine growth restriction 3.? Borderline oligohydramnios 4.? History of severe preeclampsia 5.? History of hemorrhage 6.? hemorrhage 7.? Delivery of healthy female weighing 6 pounds 1 ounce with Apgars of 8 and 8 Reason for Visit Reason for Visit: IOL Brief History: Ashly Mcqueen is a 26 year old G4 now P3 status post spontaneous vaginal delivery @ 38.4 weeks by LMP c/w 8 wk US. Preg c/b h/o severe preeclampsia, h/o hemorrhage, borderline intrauterine growth restriction with borderline oligohydramnios. The patient presented to labor delivery triage for a scheduled induction of labor per recommendations of perinatology.? The patient had borderline PALOMA readings as low as 7.5.? Growth had been anywhere from the 4th to the 7th percentile over the last couple of weeks at perinatology.? Because of these concerns, perinatology felt that it would be best to deliver in the 38th week gestation. Hospital Course Hospital Course The patient was started on IV Pitocin on the afternoon of 11/27/2021.? The patient was 3 cm at start.? She contracted well with this, however had slow change.? By the morning of 11/28/2021, she was 5 to 6 cm and received a laboring epidural.? The patient continued to make slow change, so AROM was performed at 6:20 AM on 11/28/2021.? The patient had clear fluid.? The patient then began to make more rapid change and was complete by 7:53 AM on 11/28/2021. The patient began pushing at 7:53 AM on 11/28/2021.? She pushed well and the delivered in the OA position at 8:00 AM.? There was a nuchal cord and the infant was delivered through this.? The right shoulder was the anterior shoulder and it delivered with ease.? The rest of the delivered with ease.? The 's mouth and nose were bulb suctioned by myself and the infant was placed on the mother's chest where the nurses were waiting to care for him.? The cord was clamped by myself after approximately 1 minute and cut by the infant's father.? Cord blood was obtained and the cord was then drained of blood.? Traction was placed on the umbilical cord and uterine massage was carried out.? The placenta delivered at 8:05 AM on 11/28/2021 without complication.? The placenta was noted to be intact with a central umbilical cord insertion site and what appeared to be acute bleeding underneath the insertion of the umbilical cord and the outer membrane of the uterus.? IV Pitocin was bolused.? The cervix was inspected and no lacerations were noted.? The vaginal wall was inspected and 2 very small abrasions were noted.? These were not bleeding.? The patient had heavy bleeding initially and after uterine massage the uterus clamped down well.? Unfortunately the patient continued to have heavy bleeding, so TXA was given.? Cytotec 800 mcg was also given rectally.? The patient continued to have bleeding, so Methergine IM was given.? The patient's bleeding persisted with clots so Hemabate was given IM.? After these interventions her bleeding began to decrease.? Her bleeding is still moderate, so another dose of TXA has been given.? Warm blankets are being placed on her to keep her warm and a DIC panel has been sent off.? As second IV was placed.? Currently the patient's vital signs are stable with blood pressure of 131/76 and pulse of 74 beats a minute.? The patient did have an episode of vomiting associated with the Hemabate, otherwise has not had any dizzy symptoms or other significant side effects.? A second exam of the cervix was done and no lacerations were noted on reexamination.? The patient's bleeding decreased after this and had an estimated blood loss of 900 mL. the patient did well and has had no further complications. Her bleeding has decreased well. She is ambulating, voiding, passing gas and tolerating food by mouth. Her blood pressure has been in the normal range with only a couple in the 140 range. Currently the patient is doing well and we will plan to discharge home. Physical Exam Narrative: General: Alert and oriented x3 Cardiac: Regular rate and rhythm without murmurs Lungs: Clear to auscultation bilaterally without wheezes, crackles or rhonchi Abdomen: Soft, mild tenderness over uterus. The uterus is firm and 5 cm below the umbilicus. Extremities: Trace edema in the bilateral lower extremities Urinary Catheter Management: Burris: Cath Placed During This Visit: yes Reason for Continuing Indwelling Catheter: Other Urinary Catheter Date of Insertion: 11/28/21 Urinary Catheter Time of Insertion: 01:13 Discharge Data Studies Completed and Pending Laboratory Results WBC 11.6 10^3/uL (4.0-10.0) H 11/28/21 22:15 RBC 2.89 10^6/uL (4.1-5.3) L 11/28/21 22:15 Hgb 9.0 g/dL (11.5-15.3) L 11/28/21 22:15 Hct 27.9 % (37.0-47.0) L 11/28/21 22:15 MCV 96.5 fl (81-99) 11/28/21 22:15 MCH 31.1 pg (28.0-34.0) 11/28/21 22:15 MCHC 32.3 g/dL (30.0-36.0) 11/28/21 22:15 RDW 14.2 % (12.1-15.1) 11/28/21 22:15 Plt Count 129 10^3/cmm (130-400) L 11/28/21 22:15 MPV 13.6 fL (7.4-10.4) H 11/28/21 22:15 Neut % (Auto) 75.4 % 11/28/21: Lymph % (Auto) 17.7 % 11/28/21: [place] % (Auto) 5.6 % 11/28/21: Eos % (Auto) 0.4 % 11/28/21: Baso % (Auto) 0.5 % 11/28/21: Neut # (Auto) 8.34 10^3/uL (1.8-7.7) H 11/28/21:22 Lymph # (Auto) 2.0 10^3/uL (0.8-4.8) 09/09/22 09:22 [place] # (Auto) 0.6 10^3/uL (0.2-0.9) 11/28/21 09: Eos # (Auto) 0.0 10^3/uL (0.0-0.8) 11/28/21 09: Baso # (Auto) 0.1 10^3/uL (0.0-0.1) 11/28/21 09: Nucleated RBC % (auto) 0 % 11/28/21 09: Nucleated RBCs # 0.0 /100WBC 11/28/21 09: PT 13.70 SECONDS (12.1-14.9) 11/28/21: INR 1.02 (0.8-1.2) 11/28/21: APTT 26.4 SECONDS (23.9-36.7) 11/28/21: Fibrinogen 355 mg/dL (174-498) 11/28/21: Fibrin Degrad Products Neg, <10 ug/mL (NEG) 11/28/21: D-Dimer 1.65 ug/mIFEU (0-0.59) H 11/28/21 09: Sodium 134 mmol/L (136-145) L 11/28/21 09: Potassium 3.8 mmol/L (3.5-5.1) 11/28/21: Chloride 105 mmol/L (98-107) 11/28/21 09: Carbon Dioxide 18 mmol/L (22-29) L 11/28/21 09: Anion Gap 14.8 (5-19) 11/28/21 09: BUN 2 mg/dL (6-20) L 11/28/21 09:22 Creatinine 0.4 mg/dL (0.5-0.9) L 11/28/21 09:22 GFR Calculation 196.1 mL/min (90-130) H 11/28/21 09: Glucose 72 mg/dL (65-115) 11/28/21 09: Calculated Osmolality 273 mOsm/kg (285-295) L 11/28/21 09:22 Calcium 8.0 mg/dL (8.5-10.5) L 11/28/21 09:22 Total Bilirubin 0.3 mg/dL (0.15-1.2) 11/28/21 09:22 AST 9 U/L (0-32) 11/28/21 09:22 ALT 6 U/L (0-33) 11/28/21 09:22 Alkaline Phosphatase 128 U/L (35-105) H 11/28/21 09:22 Total Protein 5.6 g/dL (6.6-8.7) L 11/28/21 09:22 Albumin 2.7 g/dL (3.5-5.2) L 11/28/21 09:22 Globulin 2.9 g/dL (1.3-4.6) 11/28/21 09:22 Vitals Last Vital Signs Temp 98.1 F 11/30/21 07:45 Pulse 52 L 11/30/21 07:45 Resp 16 11/30/21 07:45 BP 143/84 11/30/21 07:45 Pulse Ox 99 11/29/21 22:51 O2 Del Method 11/30/21 07:45 Discharge Plan Discharge Patient Disposition: Home Condition: Good Prescriptions: New ibuprofen 800 mg Tablet 800 mg PO TID Qty: 30 0RF ferrous sulfate 325 mg (65 mg iron) Tablet,Delayed Release (Dr/Ec) 325 mg PO TID Qty: 60 0RF Continued prenat.vits,eren,[id number] Tablet 1 tab PO DAILY No Action labetalol 100 mg tablet 50 mg PO BID PRN (Reason: SBP>150 or DBP>100) Qty: 30 0RF Discharge Orders: Discharge Order (Routine); Ordered 11/30/21 Ordered By: Nile Luna Referrals: Nile Luna MD [Primary Care Provider] - 6 Weeks (CALL WEDNESDAY MORNING AND MAKE APPOINTMENT WITH DR. LUNA FOR YOUR 6 WEEK POST CHECK UP.) Discharge Diet: Regular Discharge Activity: Increase activity as tolerated Patient Instructions: Depression (DC), Bleeding (DC), Preeclampsia and Eclampsia After Delivery (GEN), Hemorrhage (DC), OB Discharge Report, OB Food/Drug Interaction Guide, Opioid Safety, OB [facility], OB Vaginal Deliveries Activity Restrictions/Additional Instructions: Nothing per vagina for 6 weeks. Take extra precaution to stand slowly and be cautious with dizziness and hot showers. Discharge Attestations Time Spent in Discharge Care*: greater than 30 min Quality Metrics Clinical Quality Measures [ No reported AMI, CVA or VTE this stay] Coding Level of Care Code Acute Chg FW DC note Diagnoses hemorrhage O72.1 Spontaneous vaginal delivery O80
== END 2021-11-30 11:40 | disposition home or self-care (01) | DRG 806 ==
LOC: OPOB 00:58 → OBGYN 00:58
PROVIDERS: Admitting Provider Family Medicine; PCP Family Medicine; Visit Provider Family Medicine
DX: O41.03X0 Oligohydramnios, third trimester, not applicable or unspecified (principal); O72.1 Other immediate postpartum hemorrhage; Z37.0 Single live birth; O36.5930 Maternal care for other known or suspected poor fetal growth, third trimester, not applicable or unspecified; Z3A.38 38 weeks gestation of pregnancy; O69.81X0 Labor and delivery complicated by cord around neck, without compression, not applicable or unspecified
CPT/HCPCS: 36415; 51702; 59025; 59409; 80053; 85025; 85027; 85362; 85378; 85384; 85610; 85730; 96372; J2210; J2405; J2795

== ENCOUNTER 2021-12-03 18:50 | Emergency (ER) | payer BC, MEDICAID, SELFPAY ==
[2021-12-03 19:26] VITALS: BP 178/93; PULSE 63; RESP 16; TEMP 37.1; O2SAT 100; BMI 32.2
[2021-12-03 19:34] LABS: Hematocrit 29.2 % (37.0-47.0); Hemoglobin 9.2 g/dL (11.5-15.3); Mean Corpuscular HGB Conc 31.5 g/dL (30.0-36.0); Mean Corpuscular Hemoglobin 31.5 pg (28.0-34.0); Mean Platelet Volume 11.6 fL (7.4-10.4); Platelet Count 204 10^3/cmm (130-400); Red Blood Count 2.92 10^6/uL (4.1-5.3); White Blood Count 10.8 10^3/uL (4.0-10.0)
[2021-12-03 19:52] VITALS: BP 171/103; PULSE 68; RESP 15; O2SAT 100
--- NOTE | 2021-12-03 19:56 | ED_ITS ---
HPI - General Adult General: Chief complaint: General Medical Stated complaint: 4 days , high bp Time Seen by Provider: 12/03/21 19:43 History of Present Illness: Patient is a 26-year-old female G4, P3 with recent had a vaginal delivery on 11/28/2021 presenting to the emergency with concerns of high blood pressure for the last 3 days and blurriness of vision. Patient tells me that since delivery, patient has had elevated blood pressure and blurriness of vision. Patient went to see Dr. Luna earlier today was prescribed labetalol. Patient tells me that she also had swelling in her legs. Patient reports having history of preeclampsia in the past. Patient has any history of preeclampsia during most recent . Patient has no other focal complaints. Postoperatively after vaginal delivery, patient had hemorrhage. Patient has been doing well since discharge. Denies nausea/vomiting, fever/chill, chest pain, shortness of breath, abdominal pain, dysuria/hematuria/polyuria, diarrhea/melena/hematochezia. Onset: 3 days ago Duration:3 days Location:home Severity:moderate Associated symptoms: Deny chest pain, dyspnea, nausea, rash, palpitations or vomiting Review of Systems Const: Denies: fever(s) or chills Eyes: Denies: change in vision ENMT: Denies: mouth pain Card: Denies: chest pain or palpitations Resp: Denies: dyspnea or non-productive cough GI: Denies: abdominal pain, nausea, vomiting or diarrhea : Denies: dysuria Musc: Denies: extremity pain Skin/Breast: Denies: rash or new lesions Neuro: Denies: weakness in extremities Psych: Reports: other (Normal mood) Anuj/Lymph: Denies: easy bruising PFSH ED PFSH: Medical History hemorrhage Preeclampsia Surgical History No pertinent past surgical history Family History Father Diabetes Heart failure Social History Smoking and tobacco status: former smoker Quit status (tobacco): has quit using tobacco Year quit tobacco: 2019 Alcohol intake: never Caregiver/support person: Yes Lives independently: Yes Household members: spouse and children Marital status: Number of children: 2 Number of grandchildren: 0 Highest education level completed: High School Graduate Female Reproductive History: Date of last menstrual period: 03/03/21 Physical Exam Const: COMMON NORMALS: alert HENMT: COMMON NORMALS: atraumatic HEAD & SCALP: atraumatic MOUTH: moist mucous membranes not abnormal Eye: COMMON NORMALS: EOMs intact bilaterally and conjunctivae normal CONJUNCTIVA: Yes conjunctivae normal Neck/C-Spine: COMMON NORMALS: full ROM and supple Resp: COMMON NORMALS: normal respiratory effort and clear to auscultation bilaterally AUSCULTATION: clear to auscultation bilaterally Cardio: COMMON NORMALS: regular rate RATE: regular rate GI: COMMON NORMALS: Soft to palpation and non-tender PALPATION: Yes Soft to palpation OTHER: No focal TTP. NO guarding rebound, guarding, rigidity. No CVA tenderness to percussion. Neg [place]/Neg McBurney's point tenderness, no suprabupic tenderness to palpation. Extremity: COMMON NORMALS: full ROM OTHER: +No lower extremity edema b/l Neuro: SENSORIUM/ORIENTATION: Yes alert MOTOR EXAM: No Abnormal motor strength present and Other motor observations present (no focal motor deficits) Psych: COMMON NORMALS: speech normal SPEECH: Yes normal speech MOOD & AFFECT: Yes euthymic mood Course Vital Signs: Vital signs: Vital Signs Temperature 98.5 F 12/03/21 22:57 Pulse Rate 15 L 12/03/21 22:57 Respiratory Rate 67 H 12/03/21 22:57 Blood Pressure 153/56 12/03/21 22:57 Pulse Oximetry 99 12/03/21 22:57 Oxygen Delivery Me thod 12/03/21 20:33 [facility] - General Adult Medical Decision Making Patient is a 26-year-old female G4, P3 with recent had a vaginal delivery on 11/28/2021 presenting to the emergency with concerns of high blood pressure for the last 3 days and blurriness of vision. Patient has had preeclampsia during previous pregnancies, not most current 1. On physical exam, patient is noted to be hypertensive with blood pressure of 180/110. Patient is hemodynamically stable. Lower EXTR lower extremity swelling. Creatinine within normal limit. Hemoglobin 9.2 similar to baseline. AST/ALT and LDH not elevated. There is no protein in the urine dipstick. Prot/Cr ratio wnl. Case was discussed with Dr. Luna who recommended antihypertensive agent at the present time with close outpatient follow-up. She has a prescription for labetalol as prescribed by Dr. Luna. Disposition: Discharge. Patient counseled regarding diagnostic impression, treatment plan. Patient given ED strict return precautions to return for con tinuation, worsening, or development of new symptoms. Instructed to f/u w/ PCP regarding symptoms today. Patient verbalized understanding. Lab Data : 12/03/21 19:12/03/21 19: Laboratory Results WBC 10.8 10^3/uL (4.0-10.0) H 12/03/21: RBC 2.92 10^6/uL (4.1-5.3) L 12/03/21: Hgb 9.2 g/dL (11.5-15.3) L 12/03/21: Hct 29.2 % (37.0-47.0) L 12/03/21: MCV 100.0 fl (81-99) H 12/03/21 19: MCH 31.5 pg (28.0-34.0) 12/03/21: MCHC 31.5 g/dL (30.0-36.0) 12/03/21: RDW 15.0 % (12.1-15.1) 12/03/21 19: Plt Count 204 10^3/cmm (130-400) 12/03/21: MPV 11.6 fL (7.4-10.4) H 12/03/21: Total Counted 100 (0-100) 12/03/21 19: Atypical Lymphs % 0.0 % (0-5) 12/03/21 19: Absolute Neutrophils 5.9 10^3/cmm (1.4-6.5) 12/03/21: Segmented Neutrophils 55 % 12/03/21: Abs Segm Neuts (Man) 5.9 10/cmm (1.6-7.1) 12/03/21: Band Neutrophils 0.0 % 12/03/21: Abs Band Neuts (Man) 0.0 10^3/cmm (0.0-1.2) 12/03/21 19:22 Absolute Lymphocytes 4.2 10^3/cmm (1.2-3.4) H 12/03/21 19:22 Lymphocytes (Manual) 39 % 12/03/21 19: Monocytes (Manual) 5.0 % 12/03/21 19: Absolute Monocytes 0.5 10^3/cmm (0.1-0.6) 12/03/21 19:22 Eosinophils (Manual) 1 % 12/03/21 19: Absolute Eosinophils 0.1 10^3/cmm (0.0-0.7) 12/03/21 19: Basophils (Manual) 0.0 % 12/03/21: Absolute Basophils 0.0 10^3/cmm (0.0-0.2) 12/03/21 19: Platelet Estimate Normal (Normal) 12/03/21 19: Sodium 141 mmol/L (136-145) 12/03/21 19:27 Potassium 3.9 mmol/L (3.5-5.1) 12/03/21 19: Chloride 108 mmol/L (98-107) H 12/03/21 19: Carbon Dioxide 24 mmol/L (22-29) 12/03/21 19: Anion Gap 12.9 (5-19) 12/03/21 19: BUN 6 mg/dL (6-20) 12/03/21 19: Creatinine 0.6 mg/dL (0.5-0.9) 12/03/21 19: GFR Calculation 122.8 mL/min (90-130) 12/03/21 19: Glucose 91 mg/dL (65-115) 12/03/21 19: Calculated Osmolality 289 mOsm/kg (285-295) 12/03/21 19: Uric Acid 5.0 mg/dL (2.4-5.7) 12/03/21 19: Calcium 8.3 mg/dL (8.5-10.5) L 12/03/21 19:27 Total Bilirubin 0.2 mg/dL (0.15-1.2) 12/03/21 19:27 AST 13 U/L (0-32) 12/03/21 19:27 ALT 18 U/L (0-33) 12/03/21 19:27 Alkaline Phosphatase 97 U/L (35-105) 12/03/21 19:27 Lactate Dehydrogenase 146 U/L (135-214) 12/03/21 19:27 Total Protein 5.9 g/dL (6.6-8.7) L 12/03/21 19:27 Albumin 3.3 g/dL (3.5-5.2) L 12/03/21 19:27 Globulin 2.6 g/dL (1.3-4.6) 12/03/21 19:27 Lipase 14 U/L (13-60) 12/03/21 19:27 Urine Color Straw (Yellow) 12/03/21 19:50 Urine Appearance Clear (CLEAR) 12/03/21 19:50 Urine pH 5 (5-7) 12/03/21 19:50 Ur Specific [place] 1.005 (1.005-1.030) 12/03/21 19:50 Urine Protein Neg (Negative) 12/03/21 19:50 Urine Glucose (UA) Norm (Normal) 12/03/21 19:50 Urine Ketones Negative (Negative) 12/03/21 19:50 Urine Blood 3+ (Negative) H 12/03/21 19:50 Urine Nitrate Negative (Negative) 12/03/21 19:50 Urine Bilirubin Neg (Negative) 12/03/21 19:50 Urine Urobilinogen Norm mg/dL (Negative) 12/03/21 19:50 Ur Leukocyte Esterase Negative (Negative) 12/03/21 19:50 Urine RBC 5-10 /hpf (0-2) H 12/03/21 19:50 Urine WBC 0-4 /hpf (0-5) H 12/03/21 19:50 Ur Squamous Epith Cells 0-4 /hpf (0-5) H 12/03/21 19:50 Amorphous Sediment Not Reportable 12/03/21 19:50 Urine Bacteria None /hpf (NONE) 12/03/21 19:50 U Random Total Protein 4 mg/dL 12/03/21 19:50 Urine Creatinine 38 mg/dL (28-217) 12/03/21 19:50 Protein/Creatinin Ratio 0.11 mg/mg CR 12/03/21 19:50 Discharge Plan Discharge Patient Disposition: Home Clinical Impression: hypertension Condition: Stable Prescriptions: No Action labetalol 100 mg tablet 100 mg PO BID PRN (Reason: SBP>150 or DBP>100) prenat.vits,eren,qju-tcoy-vydwi Tablet 1 tab PO DAILY hydralazine 10 mg tablet 10 mg PO TID Qty: 60 3RF ibuprofen 800 mg Tablet 800 mg PO TID Qty: 30 0RF ferrous sulfate 325 mg (65 mg iron) Tablet,Delayed Release (Dr/Ec) 325 mg PO TID Qty: 60 0RF Discharge Orders: Discharge ED (Routine); Ordered 12/03/21 Ordered By: Diaz Rosales Referrals: Nile Luna MD [Primary Care Provider] - Discharge Diet: Advance as tolerated Discharge Activity: Increase activity as tolerated Patient Instructions: Hypertension (ED) Activity Restrictions/Additional Instructions: You need to follow-up with your primary care provider for further adjustment of your blood pressure. Your blood pressure puts you at risk for developing strokes and heart attack. Therefore it is very important for you to follow-up with this number to see if the numbers improve gradually. Because blood pressure adjustment is a gradual process, were not able to change it in 1 visit. Therefore please log your blood pressure and follow-up with your primary care provider in the next 72 hours for further adjustment of your blood pressures. Coding Level of Care Code ED Auto Air Conditioning Mechanic for Fer Fwd Exam Comprehensive
[2021-12-03 19:58] LABS: Alanine Aminotransferase 18 U/L (0-33); Albumin Level 3.3 g/dL (3.5-5.2); Alkaline Phosphatase 97 U/L (35-105); Anion Gap 12.9 (5-19); Aspartate Amino Transferase 13 U/L (0-32); Blood Urea Nitrogen 6 mg/dL (6-20); Calcium 8.3 mg/dL (8.5-10.5); Carbon Dioxide 24 mmol/L (22-29); Chloride 108 mmol/L (98-107); Globulin 2.6 g/dL (1.3-4.6); Glomerular Filtration Rate 122.8 mL/min (90-130); Glucose 91 mg/dL (65-115); Lactate Dehydrogenase 146 U/L (135-214); Lipase 14 U/L (13-60); Osmolality Calculated 289 mOsm/kg (285-295); Potassium 3.9 mmol/L (3.5-5.1); Sodium 141 mmol/L (136-145); Total Bilirubin 0.2 mg/dL (0.15-1.2); Total Protein 5.9 g/dL (6.6-8.7)
[2021-12-03 20:03] VITALS: BP 173/108; PULSE 63; RESP 15; O2SAT 100
[2021-12-03 20:09] LABS: Absolute Eosinophils 0.1 10^3/cmm (0.0-0.7); Absolute Neutrophil 5.9 10^3/cmm (1.4-6.5); Absolute Segmented Neutrophil 5.9 10/cmm (1.6-7.1); Eosinophils 1 %; Lymphocytes 39 %; Lymphocytes Absolute 4.2 10^3/cmm (1.2-3.4); Monocytes Absolute 0.5 10^3/cmm (0.1-0.6); Platelet Estimate Normal (Normal); Segmented Neutrophils 55 %; Total Cells Counted 100 (0-100)
[2021-12-03 20:19] LABS: Add Urine Microscopic? YES; Bilirubin Urine Neg (Negative); Blood Urine 3+ (Negative); Glucose Urine UA Norm (Normal); Ketones Urine Negative (Negative); Leukocyte Esterase Urine Negative (Negative); Nitrate Urine Negative (Negative); Protein Urine Neg (Negative); Specific Gravity, Urine 1.005 (1.005-1.030); Urine Appearance Clear (CLEAR); Urine Color Straw (Yellow); Urobilinogen Urine Norm (Negative); pH Urine 5 (5-7)
[2021-12-03] MEDS: magnesium sulfate premix 4 GM/100 ML PREMIX IV (20:20)
[2021-12-03 20:22] LABS: Add Urine Culture? No; Squamous Epithelial Cell Urine 0-4 /hpf (0-5); WBC Urine 0-4 /hpf (0-5)
[2021-12-03 20:33] VITALS: BP 177/55; PULSE 62; RESP 15; O2SAT 99
[2021-12-03] MEDS: labetalol 5 mg/mL SDV 20mL 20 MG IVP (20:36)
[2021-12-03 21:03] VITALS: BP 161/58; PULSE 61; RESP 15; O2SAT 95
[2021-12-03 21:38] LABS: Urine Creatinine 38 mg/dL (28-217)
[2021-12-03 22:29] LABS: Urine Protein Random 4 mg/dL
[2021-12-03 22:36] LABS: UPRO/UCREAT Ratio 0.11 mg/mg CR
[2021-12-03 22:57] VITALS: BP 153/56; PULSE 15; RESP 67; TEMP 36.9; O2SAT 99
== END 2021-12-03 22:59 | disposition home or self-care (01) ==
PROVIDERS: Emergency Provider Emergency Medicine; PCP Family Medicine
DX: O16.5 Unspecified maternal hypertension, complicating the puerperium (principal); Z87.891 Personal history of nicotine dependence
CPT/HCPCS: 36415; 80053; 81001; 82570; 83615; 83690; 84156; 84550; 85007; 85027; 96374; 96375; 99284; J3475; J3490

== ENCOUNTER 2022-01-23 12:51 | Emergency (ER) | payer BC, MEDICAID, SELFPAY ==
[2022-01-23 12:55] VITALS: BMI 29.2
--- NOTE | 2022-01-23 13:25 | ED_ITS ---
HPI - Skin/Abscess/Foreign Bdy General: Chief complaint: Animal Bite Stated complaint: dog bite Time Seen by Provider: 01/23/22 13:04 Source: patient Mode of arrival: ambulatory Limitations: no limitations History of Present Illness: 26-year-old female presents to the ER today for dog bite to the left lower back. 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 Patient reports they were told that the dog was up-to-date on vaccinations. Patient reports some burning pain but denies any other pain or symptoms at this time. Patient reports she is up-to-date on tetanus. Tetanus was given within the last 1 year. Review of Systems General: Reports: 10 or more systems reviewed and unremarkable except in HPI and below PFSH ED PFSH: Medical History Arm fracture, right at age 6--repaired No pertinent past medical history neghx: htn,dm,thyroid,dvt/pe PCP: Dr. Luna hemorrhage Preeclampsia Surgical History No pertinent past surgical history Family History Father Diabetes Heart disease Hypertension Stroke Grandfather Colon cancer Paternal-- dx age 92 Mother Hypertension Sister Thyroid disease Denies family history of Ovarian cancer Breast cancer Uterine cancer Social History Smoking and tobacco status: former smoker (quit 2018) Female Reproductive History: Date of last menstrual period: 03/03/21 Physical Exam Const: COMMON NORMALS: no acute distress, average body habitus, patient oriented x3, no limitations, healthy appearing, alert and well nourished Eye: COMMON NORMALS: conjunctivae normal CONJUNCTIVA: Yes conjunctivae normal Resp: COMMON NORMALS: normal respiratory effort EFFORT & INSPECTION: Yes able to speak in complete sentences Cardio: COMMON NORMALS: regular rate and regular rhythm RATE: regular rate RHYTHM: regular rhythm Extremity: COMMON NORMALS: normal to inspection and full ROM Neuro: COMMON NORMALS: patient oriented x3 SENSORIUM/ORIENTATION: Yes alert Psych: COMMON NORMALS: mental status grossly normal, Normal thought process present and cooperative THOUGHT PROCESS: Normal thought process present Skin: NARRATIVE SKIN EXAM: Patient has several abrasions to the left low back. There is mild bleeding noted. There is 1 puncture wound. Nothing is open with any underlying tissue exposure. Course ED course: Patient presents to the ER today with a dog bite to the left low back. Patient is up-to-date on tetanus at this time. Wounds will be examined and dressing placed. Vital Signs: Vital signs: Vital Signs Pulse Rate 87 01/23/22 13:36 Respiratory Rate 16 01/23/22 13:36 Blood Pressure 129/84 01/23/22 13:36 Pulse Oximetry 98 01/23/22 13:36 Oxygen Delivery Me thod 01/23/22 12:55 MDM - Skin/Abscess/Foreign Bdy Medicial Decision Making Patient appears to have more abrasions/skin tears than lacerations. None of these need sutured or glued. A new nonstick dressing was applied. Wound care was discussed with patient. We will go and start patient on Augmentin at this time. Discussed keeping wounds clean. Follow-up with PCP in 4 to 7 days. Return to the ER with any new or worsening symptoms. Patient verbalized understanding and was in agreement with the treatment plan. Discharge Plan Discharge Patient Disposition: Home Clinical Impression: Dog bite Qualifiers: Encounter type: initial encounter Qualified Code(s): W54.0XXA - Bitten by dog, initial encounter Condition: Stable Prescriptions: New amoxicillin-pot clavulanate 875-125 mg tablet 1 tab PO BID 10 Days Qty: 20 0RF No Action sertraline [Zoloft] 25 mg tablet 25 mg PO DAILY Qty: 90 1RF norgestimate-ethinyl estradiol [Tri-Sprintec (28)] 0.18/0.215/0.25 mg-35 mcg (28) tablet 1 tab PO DAILY Qty: 84 1RF prenat.vits,eren,chc-grvu-ofaue Tablet 1 tab PO DAILY Discharge Orders: Discharge ED (Routine); Ordered 01/23/22 Ordered By: Estefany Ashraf Referrals: Nile Luna MD [Primary Care Provider] - Discharge Diet: As Directed Discharge Activity: Resume usual activity Patient Instructions: Opioid Safety, Pain Management Activity Restrictions/Additional Instructions: Wound care as discussed. Take antibiotic as discussed. Follow-up with PCP in 5 to 7 days. Return to the ER with new or any worsening symptoms. Coding Level of Care Code ED Motion Picture Director for Fer [place]
[2022-01-23 13:36] VITALS: BP 129/84; PULSE 87; RESP 16; O2SAT 98
== END 2022-01-23 13:37 | disposition home or self-care (01) ==
PROVIDERS: Emergency Provider Physician Assistant; PCP Family Medicine
DX: S31.050A Open bite of lower back and pelvis without penetration into retroperitoneum, initial encounter (principal); W54.0XXA Bitten by dog, initial encounter; Z87.891 Personal history of nicotine dependence
CPT/HCPCS: 99283

== ENCOUNTER 2022-03-10 10:39 | Day surgery (SDC) | payer BC, MEDICAID, SELFPAY ==
[2022-03-09 11:01] VITALS: BMI 29.0
[2022-03-10] VITALS (8 sets, daily range): BP systolic 116–161; BP diastolic 79–99; PULSE 67–86; RESP 16–18; TEMP 36.2–36.8; O2SAT 95–99
[2022-03-10] MEDS: scopolamine 1.5 Patch 1 PATCH TRANSDERMA (11:11)
[2022-03-10] MEDS: phenazopyridine 100 mg Tablet 200 MG PO (11:11)
[2022-03-10] MEDS: CELEcoxib 200 mg Capsule 400 MG PO (11:11)
[2022-03-10] MEDS: acetaminophen 1,000 MG/100 ML PIGGYBACK 400 MG IV (11:19)
[2022-03-10] MEDS: gabapentin 300 mg Capsule PO (11:19)
[2022-03-10] MEDS: sodium chloride 0.9% 1,000 ML 30 ML IV (11:25)
--- NOTE | 2022-03-10 11:46 | ANES.PREANE2 ---
Pre-Anesthetic Assessment Height/Weight: Height 1.63 m Weight 76.657 kg Temp Pulse Resp BP Pulse Ox O2 Del Method 97.7 F 86 18 161/93 99 03/10/22 10:55 03/10/22 10:55 03/10/22 10:55 03/10/22 10:55 03/10/22 10:55 03/10/22 10:58 Preop Diagnosis: desires sterilization Operation Date: 03/10/22 12:40 Proposed Procedures p Laparoscopic bilateral salpingectomy 29235,Z30.2(Bilateral) - Leti Morrison MD Familial anesthetic complications: none Was Beta Miya taken within 24 hours: N/A Was Clonidine taken within 24 hours: N/A Last intake: Intake Last Liquid Date 03/09/22 Last Liquid Time 18:00 Last Solid Date 03/09/22 Last Solid Time 18:00 Social No alcohol and No tobacco Exam alert, oriented x 3, clear to auscultation bilaterally and regular rate & rhythm Airway Submandibular: within normal limits Cervical ROM: within normal limits Mallampati: Class II Dentition: full Neuropsych Anxiety and Depression Anesthetic Plan ASA status: 2 Anesthesia: General Medications/Allergies Home Medications Medication Instructions Recorded Confirmed Last Taken Type norgestimate-ethinyl estradiol 1 tab PO DAILY #84 tabs 01/14/22 03/09/22 03/04/22 Rx 0.18 mg/0.215mg/0.25mg-35 mcg(28)tablet (Tri-Sprintec (28)) sertraline 25 mg tablet (Zoloft) 25 mg PO DAILY #90 tabs 02/18/22 03/09/22 03/09/22 Rx Allergies Allergy/AdvReac Type Severity Reaction Status Date / Time No Known Allergies Allergy Verified 03/06/22 08:32 Current Medications Generic Name Dose Route Start Last Admin Trade Name Freq PRN Reason Stop Dose Admin Sodium Chloride 1,000 mls @ 30 mls/hr 03/10/22 11:00 03/10/22 11:25 Sodium Chloride 0.9% IV 03/11/22 10:59 30 mls/hr .Q24H GUILLERMO Administration PFSH Anesthesia Medical History Arm fracture, right at age 6--repaired No pertinent past medical history neghx: htn,dm,thyroid,dvt/pe PCP: Dr. Luna hemorrhage Preeclampsia Surgical History No pertinent past surgical history Family History Father Diabetes Heart disease Hypertension Stroke Grandfather Colon cancer Paternal-- dx age 92 Mother Hypertension Sister Thyroid disease Denies family history of Ovarian cancer Breast cancer Uterine cancer Social History Smoking and tobacco status: former smoker Female Reproductive History Date of last menstrual period: 03/09/22 Data Anesthesia Cardiac Studies: No Data to Display
[2022-03-10 13:19] LABS: OR HCG Qualitative Urine Negative (Negative)
--- NOTE | 2022-03-10 13:22 | W.PM.OPSUD ---
Surgery/Procedure H&P Update DATE OF PROCEDURE: March 10, 2022 DATE H&P PERFORMED: 03/06/22 H&P UPDATE INFORMATION: I have reviewed H&P completed within last 30 days, I have examined patient prior to procedure and No changes to prior documentation PREOP DIAGNOSIS: desires sterilization PLANNED PROCEDURE: Operation Date: 03/10/22 12:40 Proposed Procedures p Laparoscopic bilateral salpingectomy 13032,Z30.2(Bilateral) - Leti Morrison MD Related Problem List Diagnoses (1) Sterilization consult:
--- NOTE | 2022-03-10 14:35 | P.OP_ITS ---
Operative Report Date of procedure: March 10, 2022 Pre-op diagnosis: Preop Diagnosis desires sterilization Post-op diagnosis: same Post-op findings: successful bilateral tubal removal Procedure done: laparoscopic bilateral salpingectomy Specimens removed/disposition: bilateral fallopian tubes to pathology Surgeon: Leti Morrison Anesthesia: General Estimated blood loss (mL): 2 IV fluids (mL): 500 Urine output (mL): 100 Complications: none Findings: 8 week sized uterus. Normal tubes and ovaries Condition: stable Disposition: PACU Procedure: The patient was taken to the operating room where general anesthesia was administered and found to be adequate. She was prepped and draped in the normal sterile fashion in the dorsal lithotomy position in [facility]. A Burris catheter was placed. A weighted speculum was placed into the vagina and the anterior lip of the cervix grasped with a single-tooth tenaculum. A ZEyeJot uterine manipulator was placed. The gloves were changed and attention was turned to the laparoscopic portion of the case. A 5 mm infraumbilical incision was made. The 5 mm trocar was placed using the easy view trocar. Intra-abdominal placement was confirmed and CO2 gas was used to insufflate the abdomen. Using direct visualization and illumination of the abdominal wall, two 5 mm incisions were made low and lateral. One on the left and one on the right. The 5mm trochars were then placed under direct visualization. Using the uterine manipulator and the grasper, the fallopian tubes were identified. Using the laparoscopic cautery, the fallopian tube was clamped cauterized and cut. First on the right, then on the left. There was excellent hemostasis post removal of the bilateral tubes. Pictures were taken. All instruments were removed. The abdomen was desufflated. The incisions were closed with 4-0 Vicryl. 10 ml of 1/2% bupivicaine was used around the incisions. The patient tolerated the procedure well. Sponge lap and needle counts were correct x3. She was taken to the recovery room in stable condition.
--- NOTE | 2022-03-10 14:42 | PM.DCS ---
Discharge Providers Date of Admission: 03/10/22 Date of Discharge: March 10, 2022 Attending Provider at Admission: Dr. Morrison Attending Provider at Discharge: Leti Morrison MD Primary Care Provider: Nile Luna MD Diagnoses at Discharge Discharge Diagnosis (1) Sterilization consult: Status: Acute Reason for Visit Reason for Visit: Encounter for sterilization Hospital Course Hospital Course The patient was admitted for surgery. She did well postoperatively and was ready for discharge. Physical Exam Urinary Catheter Management: Burris: Cath Placed During This Visit: yes, but has since been removed by the nurse Urinary Catheter Date of Insertion: 03/10/22 Urinary Catheter Time of Insertion: 14:02 Date Urinary Catheter Removed: 03/10/22 Time Urinary Catheter Discontinued: 14:25 Discharge Data Studies Completed and Pending Pending at discharge Category Date Time Status Urine Culture Routine Lab 03/10/22 14:05 Ordered Pathology: Surgical [PTH] Routine Pth 03/10/22 14:27 Ordered Laboratory Results Urine HCG, Qual Negative (Negative) 03/10/22 10:52 Vitals Last Vital Signs Temp 97.7 F 03/10/22 10:55 Pulse 86 03/10/22 10:55 Resp 18 03/10/22 10:55 BP 161/93 03/10/22 10:55 Pulse Ox 99 03/10/22 10:55 O2 Del Method 03/10/22 10:58 Discharge Plan Discharge Patient Disposition: Home Condition: Stable Prescriptions: New hydrocodone-acetaminophen 5-325 mg tablet 1 tab PO Q4H PRN (Reason: pain) Qty: 25 0RF Continued sertraline [Zoloft] 25 mg tablet 25 mg PO DAILY Qty: 90 6RF Discontinued norgestimate-ethinyl estradiol [Tri-Sprintec (28)] 0.18/0.215/0.25 mg-35 mcg (28) tablet 1 tab PO DAILY Qty: 84 1RF Discharge Orders: Discharge Order (Routine); Ordered 03/10/22 Ordered By: Leti Morrison Discharge Attestations Time Spent in Discharge Care*: less than 30 min Quality Metrics Clinical Quality Measures [ No reported AMI, CVA or VTE this stay] Coding Level of Care Code Acute Chg FW DC note Diagnoses Sterilization consult Z30.09
[2022-03-10] MEDS: HYDROcodone-acetaminophen 5-325 mg Tablet 1 TAB PO (15:18)
--- NOTE | 2022-03-10 16:38 | ANE.PACU2 ---
Inpatient post-anesthesia follow up: Airway intact: Yes Vital signs: Temperature 98 F Pulse Rate 68 Respiratory Rate 18 Blood Pressure 118/82 Pulse Oximetry 98 Oxygen Delivery Me thod Room Air Oxygen Flow Rate 6 Fraction of Inspir ed Oxygen Hydration adequate: Yes Nausea and vomiting: No Pain level: 2 Mental status: Baseline
== END 2022-03-10 16:02 | disposition home or self-care (01) ==
PROVIDERS: Anesthesiology; PCP Family Medicine; Visit Provider Obstetrics & Gynecology
PROC: (CPT 58661; principal; 2022-03-10 12:30)
DX: Z30.2 Encounter for sterilization (principal); Z87.891 Personal history of nicotine dependence
CPT/HCPCS: 58661; 81025; 84703; 87086; 88302; J0131; J1100; J1200; J2250; J2405; J2710; J3010; J3490; J7030

== ENCOUNTER 2022-08-13 02:40 | Emergency (ER) | payer BC, MEDICAID, SELFPAY ==
[2022-08-13 02:46] VITALS: BP 149/107; PULSE 89; RESP 16; TEMP 36.8; O2SAT 99
--- NOTE | 2022-08-13 02:52 | XRR_ITS ---
PROCEDURE INFORMATION: Exam: XR Chest Exam date and time: 08/13/2022 2:55 AM Age: 27 years old Clinical indication: Shortness of breath; Patient HX: C/O SOB with dizziness; Additional info: Dizzy TECHNIQUE: Imaging protocol: Radiologic exam of the chest. Views: 1 view. COMPARISON: No relevant prior studies available. FINDINGS: Lungs: Unremarkable. No consolidation. Pleural spaces: Unremarkable. No pleural effusion. No pneumothorax. Heart/Mediastinum: Unremarkable. No cardiomegaly. Bones/joints: Unremarkable. XR/XR chest 1V portable [id number] IMPRESSION: No acute findings.
[2022-08-13] MEDS: meclizine 25 mg tablet 50 MG PO (02:54)
--- NOTE | 2022-08-13 02:54 | W.ED.DIZZY ---
HPI - Dizziness General: Chief Complaint: Dizziness Stated Complaint: dizzy Time Seen by Provider: 08/13/22 02:42 Source: patient Mode of arrival: ambulatory Limitations: no limitations History of Present Illness: HPI Narrative: 27-year-old female states that over last 2 weeks she has had some dizziness she states that she saw her PCP a week ago she had some sinus pain and pressure as well as diagnosed with sinusitis she finished antibiotic states she had had some proving she also has anxiety she was prescribed Xanax stable last 2 days she started having some dizziness especially with movement states that tonight at work she was getting dizzy with standing and movement. States she started getting little anxious about as well as having some dyspnea she took a Xanax when she went home states her symptoms have resolved but wanted to be checked out she is at baseline has no dizziness currently. Associated symptoms: Denies chest pain, chills, palpitations or vomiting Review of Systems Const: Denies: fever(s) or chills Eyes: Denies: blurry vision or eye discomfort ENMT: Denies: throat pain Card: Denies: chest pain or palpitations Resp: Reports: dyspnea GI: Denies: abdominal pain or vomiting Musc: Denies: back pain Skin/Breast: Denies: rash Neuro: Reports: dizziness Psych: Reports: anxiety PFSH ED PFSH: Medical History Arm fracture, right at age 6--repaired Generalized anxiety disorder No pertinent past medical history neghx: htn,dm,thyroid,dvt/pe PCP: Dr. Luna Post depression hemorrhage Preeclampsia Sterilization consult Surgical History Hx of tubal ligation 2021 Family History Father Diabetes Heart disease Hypertension Stroke Grandfather Colon cancer Paternal-- dx age 92 Mother Hypertension Sister Thyroid disease Denies family history of Ovarian cancer Breast cancer Uterine cancer Social History Substance/Drug Use: never Physical Exam Const: COMMON NORMALS: no acute distress, average body habitus and patient oriented x3 HENMT: COMMON NORMALS: normocephalic, atraumatic and TM's normal bilaterally HEAD & SCALP: normocephalic and atraumatic TYMPANIC MEMBRANE: TM's normal bilaterally Eye: OTHER: Mild beating nystagmus when she looks to the right Neck/C-Spine: COMMON NORMALS: full ROM and supple Chest: COMMONS NORMALS: normal inspection of the chest Resp: COMMON NORMALS: normal respiratory effort Cardio: COMMON NORMALS: regular rate and regular rhythm RATE: regular rate RHYTHM: regular rhythm GI: INSPECTION: Yes normal to inspection Extremity: COMMON NORMALS: normal to inspection Neuro: COMMON NORMALS: patient oriented x3 Psych: COMMON NORMALS: mental status grossly normal Skin: COMMON NORMALS: no rashes or lesions noted GENERAL SKIN EXAM: no rashes or lesions noted Course Vital Signs: Vital signs: Vital Signs Temperature 98.2 F 08/13/22 02:46 Pulse Rate 86 08/13/22 02:56 Respiratory Rate 18 08/13/22 02:56 Blood Pressure 149/107 08/13/22 02:56 Pulse Oximetry 100 08/13/22 02:56 Oxygen Delivery Me thod Room Air 08/13/22 02:56 MDM - Dizziness Medical Decision Making Patient presents with vertigo that is likely peripheral in nature no signs of a stroke here symptoms resolved with her Xanax we will write her Antivert for home form to take Antivert first-line and take Zanaflex it does not work EKG x-ray here is normal her dyspnea is likely from her anxiety she is to follow-up with PCP and return if worsening. Medical Records I reviewed the patient's medical records. EKG Data EKG 1: I personally reviewed and interpreted this EKG as follows: EKG interpretation date: 08/13/22 EKG interpretation time: 02:55 Interpretation: nsr hr [address] or t wave abnormalities qrs 114 qtc 412 Discharge Plan Discharge Patient Disposition: Home Clinical Impression: Vertigo Condition: Stable Prescriptions: New Antivert 50 mg tablet 50 mg PO BID PRN (Reason: dizziness) Qty: 20 0RF No Action sertraline [Zoloft] 25 mg tablet 25 mg PO DAILY Qty: 90 6RF fluconazole [Diflucan] 100 mg tablet 100 mg PO Q72H Qty: 2 0RF azithromycin 250 mg tablet See Rx Instructions PO .COMPLEX Qty: 6 0RF Rx Instructions: For 250 mg dose pack: take 500 mg today (day 1), then 250 mg for 4 days (days 2-5) PO alprazolam 0.5 mg tablet 0.25 mg PO DAILY PRN (Reason: anxiety) Qty: 20 0RF Discharge Orders: Discharge ED (Routine); Ordered 08/13/22 Ordered By: Kellee Hernandez Referrals: Nile Luna MD [Primary Care Provider] - 1-3 days Discharge Diet: Advance as tolerated Discharge Activity: Resume usual activity Patient Instructions: Vertigo (ED), Dizziness (ED) Coding Level of Care Code ED Blueprint Reproducer for Fer Whitlock
--- NOTE | 2022-08-13 02:55 | ECG_ITS ---
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 Measurements Intervals [place] Rate: 82 P: 39 WA: 172 QRS: 71 QRSD: 114 T: 20 QT: 373 QTc: 438 Interpretive Statements SINUS RHYTHM MODERATE INTRAVENTRICULAR CONDUCTION DELAY [110+ ms QRS DURATION] NONSPECIFIC T-WAVE ABNORMALITY No previous ECG available for comparison Electronically Signed On 08-13-2022 20:43:56 CDT by Brenda Oleary M.D. [id number]
[2022-08-13 02:56] VITALS: BP 149/107; PULSE 86; RESP 18; O2SAT 100
[2022-08-13 03:14] VITALS: BP 128/103; PULSE 80; RESP 18; O2SAT 95
== END 2022-08-13 03:16 | disposition home or self-care (01) ==
PROVIDERS: Emergency Provider Emergency Medicine; PCP Family Medicine
DX: R42 Dizziness and giddiness (principal)
CPT/HCPCS: 71045; 93005; 99284; J8597

== ENCOUNTER 2022-08-24 13:28 | Emergency (ER) | payer BC, MEDICAID, SELFPAY ==
[2022-08-24 13:34] VITALS: BP 131/89; PULSE 82; RESP 14; TEMP 36.7; O2SAT 100; BMI 31.7
--- NOTE | 2022-08-24 13:45 | ECG_ITS ---
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 Measurements Intervals [place] Rate: 82 P: 46 SC: 148 QRS: 86 QRSD: 103 T: 19 QT: 347 QTc: 406 Interpretive Statements SINUS RHYTHM NONSPECIFIC T-WAVE ABNORMALITY Compared to ECG 08/13/2022 02:55:00 Intraventricular conduction delay no longer present T-wave abnormality still present Electronically Signed On 08-24-2022 16:43:23 CDT by Leo Albarran M.D. [id number]
--- NOTE | 2022-08-24 15:01 | XRR_ITS ---
PROCEDURE INFORMATION: Exam: XR Chest Exam date and time: 08/24/2022 3:10 PM Age: 27 years old Clinical indication: Pain; Angina pectoris; Additional info: Chest pain TECHNIQUE: Imaging protocol: Radiologic exam of the chest. Views: 1 view. COMPARISON: CR (CHEST, ) 08/13/2022 2:55 AM FINDINGS: Lungs: Unremarkable. No consolidation. Pleural spaces: Unremarkable. No pleural effusion. No pneumothorax. Heart/Mediastinum: Unremarkable. No cardiomegaly. Bones/joints: Unremarkable. XR/XR chest 1V portable [id number] IMPRESSION: No acute findings.
--- NOTE | 2022-08-24 15:06 | ED_ITS ---
HPI - Chest Pain General: Chief Complaint: Chest Pain Stated Complaint: dizziness, cp Time Seen by Provider: 08/24/22 14:47 Source: patient Mode of arrival: ambulatory Limitations: no limitations History of Present Illness: This 27-year-old female with a history of anxiety and panic attacks presents to the ER for evaluation of chest pain that started around noon today. Pain is sharp, located on the left anterior chest wall and does not radiate. Patient states that putting pressure over the area makes the pain slightly better. Pain has not changed in character since onset. Patient has been having anxiety and panic attacks that has worsened since July, at the time that she started experiencing intermittent lightheadedness. She has seen her primary care physician for the lightheadedness and was started on meclizine. She was also given Xanax for her anxiety. She took those medications yesterday evening because she was having lightheadedness. Currently, patient is stable and in no acute distress. Review of Systems Const: Denies: chills, body aches or change in appetite Eyes: Denies: change in vision or eye discharge ENMT: Denies: throat pain, dental pain or nasal discharge Card: Reports: chest pain and lightheadedness : Denies: dysuria Musc: Denies: neck pain or back pain Neuro: Denies: headache(s) or weakness in extremities Psych: Denies: depression Anuj/Lymph: Denies: easy bruising All/Imm: Denies: urticaria, tongue swelling or facial swelling PFSH ED PFSH: Medical History Arm fracture, right at age 6--repaired Generalized anxiety disorder No pertinent past medical history neghx: htn,dm,thyroid,dvt/pe PCP: Dr. Luna Post depression hemorrhage Preeclampsia Sterilization consult Surgical History Hx of tubal ligation 2021 Family History Father Diabetes Heart disease Hypertension Stroke Grandfather Colon cancer Paternal-- dx age 92 Mother Hypertension Sister Thyroid disease Denies family history of Ovarian cancer Breast cancer Uterine cancer Social History Substance/Drug Use: never Physical Exam Const: COMMON NORMALS: no acute distress, patient oriented x3, no limitations and alert HENMT: COMMON NORMALS: normocephalic HEAD & SCALP: normocephalic Eye: COMMON NORMALS: EOMs intact bilaterally Neck/C-Spine: COMMON NORMALS: full ROM and supple Chest: COMMONS NORMALS: normal inspection of the chest Resp: COMMON NORMALS: normal respiratory effort, No retractions, No use of accessory muscles and clear to auscultation bilaterally AUSCULTATION: clear to auscultation bilaterally Cardio: COMMON NORMALS: regular rate, regular rhythm and No murmurs present (Cardio) RATE: regular rate RHYTHM: regular rhythm GI: COMMON NORMALS: Normal to inspection, nondistended, normoactive bowel sounds present and non-tender : COMMON NORMALS: Yes no CVA tenderness BLADDER/KIDNEY EXAM: Yes no CVA tenderness Back/Pelvis: COMMON NORMALS: no CVA tenderness and no thoracic nor lumbar tenderness Extremity: GENERAL: Yes normal exam except as noted Neuro: COMMON NORMALS: patient oriented x3 and no focal motor deficits SENSORIUM/ORIENTATION: Yes alert Psych: COMMON NORMALS: mental status grossly normal and cooperative Course Vital Signs: Vital signs: Vital Signs Temperature 98.0 F 08/24/22 13:34 Pulse Rate 78 08/24/22 16:32 Respiratory Rate 15 08/24/22 16:32 Blood Pressure 124/82 08/24/22 16:32 Pulse Oximetry 100 08/24/22 16:32 Oxygen Delivery Me thod Room Air 08/24/22 16:32 MDM - Chest Pain Medical Decision Making Medical decision making: Patient presents to the ER for evaluation of chest pain that started today. She has a background history of anxiety and panic attacks. Clinical exam is unremarkable. EKG is negative for any acute ischemic changes. Initial troponin and repeat troponin 2 hours later are both negative with a delta of 0. Oxygen saturation is 100% on room air and patient is in no respiratory distress of any sort. There is nothing to suggest that patient is having an acute coronary syndrome at this time. Also, differentials like pulmonary embolism, pleural effusion, cardiac tamponade or aortic dissection are highly unlikely. There is no indication to admit her at this time. It is reasonable to believe t hat her symptoms are most likely due to to anxiety/panic attacks. She already has Zoloft and Xanax that she takes at home. She was advised to continue same. Patient verbalized understanding and agrees with the plan. Return instructions provided. Lab Data 08/24/22 15:40 08/24/22 15:40 Radiology Impressions Chest X-Ray 08/24/22 15:01 IMPRESSION: No acute findings. Laboratory Results WBC 9.0 10^3/uL (4.0-10.0) 08/24/22 15:40 Corrected WBC Cancelled 08/24/22 15:07 RBC 4.87 10^6/uL (4.1-5.3) 08/24/22 15:40 Hgb 13.2 g/dL (11.5-15.3) 08/24/22 15:40 Hct 42.9 % (37.0-47.0) 08/24/22 15:40 MCV 88.1 fl (81-99) 08/24/22 15:40 MCH 27.1 pg (28.0-34.0) L 08/24/22 15:40 MCHC 30.8 g/dL (30.0-36.0) 08/24/22 15:40 RDW 14.2 % (12.1-15.1) 08/24/22 15:40 Plt Count 222 10^3/cmm (130-400) 08/24/22 15:40 MPV 12.4 fL (7.4-10.4) H 08/24/22 15:40 Gran % Cancelled 08/24/22 15:07 Neut % (Auto) 72.9 % 08/24/22 15:40 Lymph % (Auto) 21.1 % 08/24/22 15:40 [place] % (Auto) 4.4 % 08/24/22 15:40 Eos % (Auto) 0.7 % 08/24/22 15:40 Baso % (Auto) 0.7 % 08/24/22 15:40 Neut # (Auto) 6.53 10^3/uL (1.8-7.7) 08/24/22 15:40 Lymph # (Auto) 1.9 10^3/uL (0.8-4.8) 08/24/22 15:40 [place] # (Auto) 0.4 10^3/uL (0.2-0.9) 08/24/22 15:40 Eos # (Auto) 0.1 10^3/uL (0.0-0.8) 08/24/22 15:40 Baso # (Auto) 0.1 10^3/uL (0.0-0.1) 08/24/22 15:40 Absolute Gran (auto) Cancelled 08/24/22 15:07 Nucleated RBC % (auto) 0 % 08/24/22 15:40 Nucleated RBCs # 0.0 /100WBC 08/24/22 15:40 Sodium 137 mmol/L (136-145) 08/24/22 15:40 Potassium 4.4 mmol/L (3.5-5.1) 08/24/22 15:40 Chloride 101 mmol/L (98-107) 08/24/22 15:40 Carbon Dioxide 23 mmol/L (22-29) 08/24/22 15:40 Anion Gap 17.4 (5-19) 08/24/22 15:40 BUN 9 mg/dL (6-20) 08/24/22 15:40 Creatinine 0.6 mg/dL (0.5-0.9) 08/24/22 15:40 GFR Calculation 121.8 mL/min (90-130) 08/24/22 15:40 Glucose 88 mg/dL (65-115) 08/24/22 15:40 Calculated Osmolality 282 mOsm/kg (285-295) L 08/24/22 15:40 Calcium 9.5 mg/dL (8.5-10.5) 08/24/22 15:40 Total Bilirubin 0.3 mg/dL (0.15-1.2) 08/24/22 15:40 AST 14 U/L (0-32) 08/24/22 15:40 ALT 10 U/L (0-33) 08/24/22 15:40 Alkaline Phosphatase 87 U/L (35-105) 08/24/22 15:40 Troponin T Baseline 6 ng/L (0-10) 08/24/22 15:40 Troponin T 120 Minute 6.00 ng/L (0-10) 08/24/22 17:41 Delta Troponin T 0 ABS# (0-10) 08/24/22 17:41 Total Protein 7.7 g/dL (6.6-8.7) 08/24/22 15:40 Albumin 4.6 g/dL (3.5-5.2) 08/24/22 15:40 Globulin 3.1 g/dL (1.3-4.6) 08/24/22 15:40 Urine Opiates Screen Negative ng/mL (Negative) 08/24/22 15:19 Ur Barbiturates Screen Negative ng/mL (Negative) 08/24/22 15:19 Ur Phencyclidine Scrn Negative ng/mL (Negative) 08/24/22 15:19 Ur Amphetamines Screen Negative ng/mL (Negative) 08/24/22 15:19 U Benzodiazepines Scrn Positive ng/mL (Negative) H 08/24/22 15:19 Urine Cocaine Screen Negative ng/mL (Negative) 08/24/22 15:19 U Marijuana (THC) Screen Negative ng/mL (Negative) 08/24/22 15:19 EKG Data EKG 1: Interpretation: Normal sinus rhythm, rate of 82,, normal axis, normal intervals, normal QRS, nonspecific T wave changes, no STEMI. Discharge Plan Discharge Patient Disposition: Home Clinical Impression: Anxiety Condition: Stable Prescriptions: No Action alprazolam 0.5 mg tablet 0.25 mg PO DAILY PRN (Reason: anxiety) Qty: 20 0RF meclizine 25 mg tablet 50 mg PO QPM PRN (Reason: Dizziness) Zoloft 25 mg tablet 25 mg PO QPM Discharge Orders: Discharge ED (Routine); Ordered 08/24/22 Ordered By: Diana Lynn Referrals: Nile Luna MD [Primary Care Provider] - Discharge Diet: Usual diet Discharge Activity: Resume usual activity Patient Instructions: Opioid Safety, Pain Management Activity Restrictions/Additional Instructions: Continue taking the Zoloft and alprazolam he already have at home. Follow-up with your primary care physician in 3 to 5 days for reevaluation. Return to the ER with new or worsening symptoms. Coding Level of Care Code ED Records Coordinator for Fer Whitlock
[2022-08-24 15:10] VITALS: BP 144/101; PULSE 91; RESP 15; O2SAT 100
[2022-08-24 15:38] LABS: Amphetamines Screen Urine Negative (Negative); Barbiturates Screen Urine Negative (Negative); Benzodiazepines Screen Urine Positive (Negative); Cocaine Screen Urine Negative (Negative); Opiate Screen Urine Negative (Negative); PCP Screen Urine Negative (Negative); THC Screen Urine Negative (Negative)
[2022-08-24 15:59] LABS: Basophils # 0.1 10^3/uL (0.0-0.1); Basophils % 0.7 %; Eosinophils # 0.1 10^3/uL (0.0-0.8); Eosinophils % 0.7 %; Hematocrit 42.9 % (37.0-47.0); Hemoglobin 13.2 g/dL (11.5-15.3); Lymphocytes # 1.9 10^3/uL (0.8-4.8); Lymphocytes % 21.1 %; Mean Corpuscular HGB Conc 30.8 g/dL (30.0-36.0); Mean Corpuscular Hemoglobin 27.1 pg (28.0-34.0); Mean Corpuscular Volume 88.1 fl (81-99); Mean Platelet Volume 12.4 fL (7.4-10.4); Monocytes # 0.4 10^3/uL (0.2-0.9); Monocytes % 4.4 %; Neutrophils # 6.53 10^3/uL (1.8-7.7); Neutrophils % 72.9 %; Nucleated Red Blood Cells % 0 %; Platelet Count 222 10^3/cmm (130-400); Red Blood Count 4.87 10^6/uL (4.1-5.3); Red Cell Distribution Width 14.2 % (12.1-15.1)
[2022-08-24 16:15] LABS: Troponin(5th) Baseline 6 ng/L (0-10)
[2022-08-24 16:16] LABS: Alanine Aminotransferase 10 U/L (0-33); Albumin Level 4.6 g/dL (3.5-5.2); Alkaline Phosphatase 87 U/L (35-105); Anion Gap 17.4 (5-19); Aspartate Amino Transferase 14 U/L (0-32); Blood Urea Nitrogen 9 mg/dL (6-20); Calcium 9.5 mg/dL (8.5-10.5); Carbon Dioxide 23 mmol/L (22-29); Chloride 101 mmol/L (98-107); Creatinine Clr Calc Pharmacy 150.2137; Globulin 3.1 g/dL (1.3-4.6); Glomerular Filtration Rate 121.8 mL/min (90-130); Glucose 88 mg/dL (65-115); Osmolality Calculated 282 mOsm/kg (285-295); Potassium 4.4 mmol/L (3.5-5.1); Sodium 137 mmol/L (136-145); Total Bilirubin 0.3 mg/dL (0.15-1.2); Total Protein 7.7 g/dL (6.6-8.7)
[2022-08-24 16:32] VITALS: BP 124/82; PULSE 78; RESP 15; O2SAT 100
[2022-08-24] MEDS: meclizine 25 mg tablet PO (17:19)
[2022-08-24 18:12] LABS: Troponin 5 2HR Delta 0 ABS# (0-10)
[2022-08-24 18:54] VITALS: BP 124/82; PULSE 78; RESP 15; O2SAT 100
== END 2022-08-24 18:56 | disposition home or self-care (01) ==
PROVIDERS: Emergency Provider Family Medicine; PCP Family Medicine
DX: F41.9 Anxiety disorder, unspecified (principal)
CPT/HCPCS: 36415; 71045; 80053; 80306; 84484; 85025; 93005; 99285; J8597

== ENCOUNTER 2022-09-15 23:09 | Emergency (ER) | payer BC, MEDICAID, SELFPAY ==
[2022-09-15 23:13] VITALS: BP 133/86; PULSE 77; RESP 16; TEMP 36.6; O2SAT 99; BMI 31.7
[2022-09-15 23:16] VITALS: PULSE 80; RESP 20
--- NOTE | 2022-09-15 23:36 | ED_ITS ---
HPI - Anxiety General: Chief Complaint: Anxiety Stated Complaint: sob Time Seen by Provider: 09/15/22 23:36 History of Present Illness: 27-year-old lady presenting to the emergency department for episode of shortness of breath and tight chest. For approximately a month and a half the patient has been having increased episodes of anxiety and panic attack type symptoms. She has been seen in the outpatient setting as well as the emergency department setting. She reports having normal blood work, EKG, and head CT. She has been started on fluoxetine 5 days ago and also has alprazolam. This evening she took her alprazolam and still in symptoms so she took another half which she has been taking. Initially she did not feel improvement however upon getting here has had improvement. No family history of early cardiac or arrhythmias. No risk factors for DVT or PE. Low risk by heart score. No other specific changes in health, exacerbating, or alleviating factors identified. Onset (ago): hour(s) History of similar episodes: Yes Review of Systems General: Reports: 10 or more systems reviewed and unremarkable except in HPI and below PFS ED PFSH: Medical History Arm fracture, right at age 6--repaired Generalized anxiety disorder No pertinent past medical history neghx: htn,dm,thyroid,dvt/pe PCP: Dr. Luna Post depression hemorrhage Preeclampsia Sterilization consult Surgical History Hx of tubal ligation 2021 Family History Father Diabetes Heart disease Hypertension Stroke Grandfather Colon cancer Paternal-- dx age 92 Mother Hypertension Sister Thyroid disease Denies family history of Ovarian cancer Breast cancer Uterine cancer Social History Substance/Drug Use: never Physical Exam Const: COMMON NORMALS: alert GENERAL APPEARANCE: cooperative and well developed HENMT: COMMON NORMALS: normocephalic and atraumatic HEAD & SCALP: normocephalic and atraumatic THROAT: posterior oropharynx normal Eye: COMMON NORMALS: conjunctivae normal CONJUNCTIVA: Yes conjunctivae normal SCLERA: sclerae normal Neck/C-Spine: COMMON NORMALS: supple GENERAL: Yes trachea midline Resp: COMMON NORMALS: clear to auscultation bilaterally EFFORT & INSPECTION: Yes able to speak in complete sentences AUSCULTATION: clear to auscultation bilaterally Cardio: COMMON NORMALS: regular rate and regular rhythm RATE: regular rate RHYTHM: regular rhythm GI: COMMON NORMALS: Soft to palpation PALPATION: Yes Soft to palpation and No Tenderness to palpation present (GI) Extremity: GENERAL: Yes normal exam except as noted and No edema Neuro: COMMON NORMALS: moves all extremities SENSORIUM/ORIENTATION: Yes alert and No Orientation impaired Psych: COMMON NORMALS: mental status grossly normal and Normal thought process present THOUGHT PROCESS: Normal thought process present Course Vital Signs: Vital signs: Vital Signs Temperature 97.8 F 09/15/22 23:13 Pulse Rate 75 09/16/22 00:05 Respiratory Rate 18 09/16/22 00:05 Blood Pressure 133/86 09/15/22 23:13 Pulse Oximetry 98 09/16/22 00:05 Oxygen Delivery Me thod Room Air 09/15/22 23:13 MDM - Anxiety Medical Decision Making 27-year-old female presenting for evaluation of anxiety. Clinical history is consistent with anxiety/panic attacks. She is had a significant work-up in the past and is currently undergoing initiation of treatment. Denies suicidal or homicidal ideation. Given clinical exam and provided clinical history I do not believe that repeat laboratory or imaging studies are going to yield clinically relevant findings. The results of ED evaluation were discussed with the patient including prescriptions and/or symptomatic cares (if applicable) including appropriate and responsible use, followup plan, and return precautions. The patient verbalized understanding and felt safe for discharge. Medical Records I reviewed the patient's medical records. Lab Data I reviewed the patient's lab results. Discharge Plan Discharge Patient Disposition: Home Clinical Impression: Panic disorder Condition: Stable Prescriptions: No Action fluoxetine 20 mg tablet 20 mg PO DAILY Qty: 30 2RF lorazepam 0.5 mg tablet 0.5 mg PO DAILY PRN (Reason: anxiety) Qty: 20 0RF meclizine 25 mg tablet 50 mg PO QPM PRN (Reason: Dizziness) Discharge Orders: Discharge ED (Routine); Ordered 09/15/22 Ordered By: Chuy Juares Referrals: Nile Luna MD [Primary Care Provider] - Discharge Diet: Usual diet Discharge Activity: Resume usual activity Patient Instructions: Panic Disorder (ED), Anxiety (ED) Activity Restrictions/Additional Instructions: Thank you for visiting the emergency department. You were seen and evaluated for episode of chest pain and shortness of breath. The most likely cause of your symptoms is related to anxiety and panic disorder. As discussed, please continue outpatient follow-up and medications. [facility] [phone] If you or someone you care for is experiencing a psychiatric emergency, please call the crisis hotline ([employer]) 24-hours a day, 7 days a week at [phone]. The hospital as a crisis stabilization center with walk-in hours from 11 AM to 9 PM daily located on the south side of the hospital ([address]). Return for anything that you are concerned about and feel needs emergency department evaluation. 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
[2022-09-16 00:05] VITALS: PULSE 75; RESP 18; O2SAT 98
== END 2022-09-16 00:07 | disposition home or self-care (01) ==
PROVIDERS: Emergency Provider Emergency Medicine; PCP Family Medicine
DX: F41.0 Panic disorder [episodic paroxysmal anxiety] (principal)
CPT/HCPCS: 99282

== ENCOUNTER 2022-09-22 21:33 | Emergency (ER) | payer BC, MEDICAID, SELFPAY ==
[2022-09-22 21:40] VITALS: BP 154/101; PULSE 85; RESP 18; TEMP 36.6; O2SAT 96; BMI 31.7
--- NOTE | 2022-09-22 22:53 | ECG_ITS ---
[facility] Test Date: 2022-09-22 Pat Name: Ashly Mcqueen Department: Room: Gender: Female Panel Gluer: : 1995 Requested By: Marion Pettit Order Number: [id number] Semaj MD: Brenda Oleary M.D. Measurements Intervals [place] Rate: 59 P: 29 OK: 194 QRS: 68 QRSD: 115 T: 36 QT: 401 QTc: 398 Interpretive Statements SINUS BRADYCARDIA MODERATE INTRAVENTRICULAR CONDUCTION DELAY [110+ ms QRS DURATION] Compared to ECG 08/24/2022 13:45:19 Intraventricular conduction delay now present Sinus rhythm no longer present T-wave abnormality no longer present Electronically Signed On 09-23-2022 4:15:26 CDT by Brenda Oleary M.D. [id number]
[2022-09-22] MEDS: LORazepam 1 mg Tablet PO (22:58)
--- NOTE | 2022-09-22 23:55 | ED_ITS ---
HPI - Dizziness General: Chief Complaint: Dizziness Stated Complaint: Dizzy Time Seen by Provider: 09/22/22 21:43 History of Present Illness: HPI Narrative: 27 yo female patient presents to ER with panic attack. Pt states she has been having these and was taken of her xanax and put on Prozac 2 weeks ago. Pt states this started while taking her kids to see [employer] [facility]. Pt states she has also had chronic sinus infections that she would like to see a specialist for. Pt denies and chest pain or SOB. Pt denies an fever or substance abuse Associated symptoms: Denies change in hearing, chest pain, chills, diaphoresis, ear discharge, headache(s), malaise, nausea, nasal congestion, palpitations, syncope, tinnitus or vomiting Associated neuro symptoms: Deny confusion, dysphagia or numbness in extremities Review of Systems Const: Denies: fever(s), chills, body aches, change in appetite, change in weight, fatigue, malaise or diaphoresis Eyes: Denies: change in vision, blurry vision, blind spots, photophobia, eye discomfort, eye discharge, eye redness, floaters or seeing flashes ENMT: Denies: throat pain, uvular edema, enlarged tonsils, odynophagia, hoarseness, mouth pain, swelling of lips/tongue, oral sores, bleeding gums, dental pain, dry mouth, ear or mastoid pain, ear discharge, change in hearing, tinnitus, disequilibrium, nasal discharge, nasal congestion, post nasal drip or sinus pain Card: Denies: chest pain, palpitations, irregular heart rhythm, edema, swelling of feet/ankles, syncope, pre-syncope, dyspnea on exertion, orthopnea, leg pain with exertion or acrocyanosis Resp: Denies: dyspnea, productive cough, non-productive cough, wheezing, stridor, pain on inspiration, change in phlegm color, hemoptysis or chest congestion GI: Denies: abdominal pain, nausea, vomiting, hematemesis, dysphagia, diarrhea, constipation, GI cramping, change in bowel habits or rectal pain : Denies: flank pain, difficulty voiding, dysuria, urinary frequency, urinary urgency, urinary hesitancy or hematuria Musc: Denies: neck pain, back pain, extremity pain, extremity swelling, joint pain, joint swelling, joint redness, joint warmth or deformity Skin/Breast: Denies: rash, pruritus, erythema, sores, new lesions, changes in skin color or dry skin Neuro: Denies: headache(s), numbness in extremities, weakness in extremities, sensory changes, lack of coordination, difficulty walking, frequent falls, dizziness, vertigo, confusion, behavioral changes, Slurred speech present, difficulty communicating thoughts or seizure-like activity Psych: Denies: anxiety, depression, suicidal ideation or homicidal ideation Endo: Denies: polyuria, polydipsia, tired all the time, cold intolerance, excessive sweating, flushing, hot flashes or heat intolerance Anuj/Lymph: Denies: easy bruising, easy bleeding, petechiae, purpura, enlarged lymph nodes or tender lymph nodes All/Imm: Denies: urticaria, throat swelling, tongue swelling, facial swelling, acute wheezing or itchy eyes PFSH ED PFSH: Medical History Arm fracture, right at age 6--repaired Generalized anxiety disorder No pertinent past medical history neghx: htn,dm,thyroid,dvt/pe PCP: Dr. Luna Post depression hemorrhage Preeclampsia Sterilization consult Surgical History Hx of tubal ligation 2021 Family History Father Diabetes Heart disease Hypertension Stroke Grandfather Colon cancer Paternal-- dx age 92 Mother Hypertension Sister Thyroid disease Denies family history of Ovarian cancer Breast cancer Uterine cancer Social History Substance/Drug Use: never Physical Exam Const: COMMON NORMALS: no acute distress, patient oriented x3, healthy appearing, alert and well nourished GENERAL APPEARANCE: cooperative, comfortable, well kempt and well developed; not ill appearing ORIENTATION/CONSCIOUSNESS: Yes awake, Yes oriented to person, Yes oriented to place and Yes oriented to time HENMT: COMMON NORMALS: normocephalic, atraumatic, hearing grossly normal bilaterally, external ears normal, EAC's normal, TM's normal bilaterally, Normal external nose present, Normal nasal mucous membranes and turbinates present and moist oral mucous membranes HEAD & SCALP: normal to inspection, normocephalic and atraumatic FACE & SINUS: normal facial exam, sinuses nontender and face symmetric NOSE: Normal external nose present, Normal nares present, Normal nasal mucous membranes and turbinates present, No nasal discharge present and Abnormal external nose present EXTERNAL EAR: Yes external ears normal and Yes mastoids normal EXTERNAL AUDITORY CANAL: EAC's normal TYMPANIC MEMBRANE: TM's normal bilaterally MOUTH: Normal oral and palatal mucosa present, lip normal, tongue normal and Normal salivary glands and ducts present THROAT: no uvular edema Eye: COMMON NORMALS: Equal, round and reactive pupils present, EOMs intact bilaterally, conjunctivae normal, no scleral icterus and no papilledema GENERAL EYE: appearance normal, both eyes and all related structures EYELID: eyelids normal CONJUNCTIVA: Yes conjunctivae normal SCLERA: sclerae normal CORNEA: Yes corneas normal PUPIL: Yes Equal, round and reactive pupils present DIRECT OPHTHALMOSCOPY: Yes no papilledema Neck/C-Spine: COMMON NORMALS: full ROM, no lymphadenopathy, supple, no meningeal signs, no JVD and Thyroid normal GENERAL: Yes normal visual inspection and Yes trachea midline THYROID: Thyroid normal CERVICAL SPINE: Yes cervical ROM normal Lymph: LYMPHATIC: no lymphadenopathy noted and no lymphedema noted Chest: COMMONS NORMALS: normal inspection of the chest and normal palpation of entire chest wall Resp: COMMON NORMALS: normal respiratory effort, No retractions, No use of accessory muscles and clear to auscultation bilaterally EFFORT & INSPECTION: Yes able to speak in complete sentences and Yes symmetric chest movement AUSCULTATION: clear to auscultation bilaterally Cardio: COMMON NORMALS: no JVD, regular rate and regular rhythm RATE: regular rate RHYTHM: regular rhythm Extremity: COMMON NORMALS: normal to inspection, full ROM and capillary refill normal GENERAL: Yes normal exam except as noted Neuro: COMMON NORMALS: patient oriented x3, CN's II-XII intact bilaterally, moves all extremities, no focal motor deficits, no sensory deficits noted and gait normal SENSORIUM/ORIENTATION: Yes alert, Yes oriented to person, Yes oriented to place and Yes oriented to time MENINGEAL SIGNS: Yes no meningeal signs CRANIAL NERVES: Yes CN normal except as noted SPEECH: speech normal GAIT: Yes Normal gait present SENSORY EXAM: Yes extremities MOTOR EXAM: 5/5 motor strength present throughout Psych: COMMON NORMALS: mental status grossly normal, Normal thought process p resent, cooperative, normal affect, speech normal, activity/motor behavior normal, denies hallucinations, denies homicidal ideation and denies suicidal ideation APPEARANCE: Yes grossly normal and Yes well kempt ATTITUDE: Yes calm ACTIVITY/MOTOR BEHAVIOR: Yes appropriate eye contact SPEECH: Yes normal speech THOUGHT PROCESS: Normal thought process present THOUGHT CONTENT: Yes Normal thought content present ATTENTION/CONCENTRATION: Yes attention grossly intact MEMORY/COGNITION: Yes memory grossly intact INSIGHT: Good insight present (Psych) JUDGEMENT: Good judgement present (Psych) Skin: COMMON NORMALS: no rashes or lesions noted, no wounds, turgor normal, no jaundice, no petechiae and no mottling GENERAL SKIN EXAM: no rashes or lesions noted and turgor normal Course Vital Signs: Vital signs: Vital Signs Temperature 97.9 F 09/22/22 21:40 Pulse Rate 85 09/22/22 21:40 Respiratory Rate 18 09/22/22 21:40 Blood Pressure 154/101 09/22/22 21:40 Pulse Oximetry 96 09/22/22 21:40 Oxygen Delivery Me thod Room Air 09/22/22 21:40 MDM - Dizziness Medical Decision Making Patient is wwll appearing non toxic and in no acute distress. 27 yo female patient presents to ER with panic attack. Pt states she has been having these and was taken of her xanax and put on Prozac 2 weeks ago. Pt states this started while taking her kids to see [employer] [facility]. Pt states she has also had chr onic sinus infections that she would like to see a specialist for. Pt denies and chest pain or SOB. Pt denies an fever or substance abuse Pt was given ativan and states she feels much better. EKG reveals no st elevation depression or concerning arrhythmias. I will give patient a referral for chronic sinus infections. Pt advised to continue to take Prozac and her antianxiety meds as prescribed, Return precautions and home care advised. Pt denies any SI or HI. Pt states she feels much better and would like to go home. 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
[2022-09-23 00:23] VITALS: BP 118/73; PULSE 59; RESP 16; O2SAT 99
--- NOTE | 2022-09-23 09:38 | DCPLANNER ---
Addendum entered by Kimmy Kirkpatrick 10/15/22 06:40: Patient had a follow up appointment scheduled with ENT - patient did attend appointment Addendum entered by Kimmy Kirkpatrick 10/02/22 12:34: Patient has a follow up appointment scheduled for Wednesday, October 12, 2022 at 1:[address] Temple at ENT. Original Note: manager financial reporting had message to schedule a follow up appointment for patient with ENT. manager financial reporting sent patients information to the front office staff at ENT. Patients information will be printed and reviewed. Clinic will call patient with appointment information.
== END 2022-09-23 00:24 | disposition home or self-care (01) ==
PROVIDERS: Emergency Provider Registered Nurse; PCP Family Medicine
DX: F41.0 Panic disorder [episodic paroxysmal anxiety] (principal)
CPT/HCPCS: 93005; 99283

== ENCOUNTER → 2022-10-08 11:34 | Outpatient (BNVA) | payer BC, MEDICAID, SELFPAY | PROVIDERS: PCP Family Medicine; Visit Provider Clinical Nurse Specialist Adult Health | DX: F53.0 Postpartum depression (principal) | CPT/HCPCS: 80048; 84436; 84443; 84481 ==

== ENCOUNTER → 2023-03-29 10:14 | Outpatient (BNVA) | payer BC, MEDICAID, SELFPAY | PROVIDERS: PCP Family Medicine; Visit Provider Clinical Nurse Specialist Adult Health | DX: N39.0 Urinary tract infection, site not specified (principal) | CPT/HCPCS: 81000; 87086 ==

== ENCOUNTER → 2024-02-09 09:19 | Outpatient (BNVA) | payer BC, MEDICAID, SELFPAY | PROVIDERS: PCP Family Medicine; Visit Provider Nurse Practitioner | DX: J02.9 Acute pharyngitis, unspecified (principal) | CPT/HCPCS: 87880 ==